=== PATIENT | female | born 1955 | race Caucasian/White ===

== ENCOUNTER → 2019-08-01 10:02 | Outpatient (BNVA) | payer MEDICARE, SELFPAY | PROVIDERS: Family Provider Family Medicine; PCP Nurse Practitioner; Referring Provider Nurse Practitioner; Visit Provider Specialist | DX: M25.511 Pain in right shoulder (principal) | CPT/HCPCS: 73030 ==

== ENCOUNTER 2019-08-01 11:34 | Outpatient (CLI) | payer MEDICARE, SELFPAY ==
[2019-08-01 12:08] LABS: Hematocrit 41.8 % (37.0-47.0); Hemoglobin 13.2 g/dL (11.5-15.3); Mean Corpuscular HGB Conc 31.6 g/dL (30.0-36.0); Mean Corpuscular Hemoglobin 28.1 pg (28.0-34.0); Mean Corpuscular Volume 88.9 fL (81-99); Mean Platelet Volume 9.9 fL (7.4-10.4); Platelet Count 379 10^3/cmm (130-400); Red Cell Distribution Width 13.8 % (12.1-15.1); White Blood Count 11.6 10^3/uL (4.0-10.0)
[2019-08-01 12:26] LABS: Absolute Eosinophils 0.2 10^3/cmm (0.0-0.7); Absolute Segmented Neutrophil 7.7 10/cmm (1.6-7.1); Band Neutrophils Absolute 0.5 10^3/cmm (0.0-1.2); Eosinophils 2 %; Lymphocytes 23 %; Monocytes Absolute 0.5 10^3/cmm (0.1-0.6); Platelet Estimate Normal (Normal); Segmented Neutrophils 67 %; Total Cells Counted 100 (0-100)
[2019-08-01 12:32] LABS: C Reactive Protein 27.8 mg/L (0.0-4.9)
[2019-08-01 12:59] LABS: Erythrocyte Sedimentation Rate 30 mm/hr (0-15)
[2019-08-04 02:17] LABS: ANA SCREEN, IFA NEGATIVE (NEGATIVE); CENTROMERE B ANTIBODY <1.0 NEG AI (<1.0 NEG); COMPLEMENT COMPONENT C3C 167 mg/dL (83-193); COMPLEMENT COMPONENT C4C 35 mg/dL (15-57); COMPLEMENT, TOTAL (CH50) >60 U/mL (31-60); DNA AB (DS) CRITHIDIA,IFA NEGATIVE (NEGATIVE); JO-1 ANTIBODY <1.0 NEG AI (<1.0 NEG); RNP ANTIBODY <1.0 NEG AI (<1.0 NEG); SCL-70 ANTIBODY <1.0 NEG AI (<1.0 NEG); SJOGREN'S ANTIBODY (SS-A) <1.0 NEG AI (<1.0 NEG); SM ANTIBODY <1.0 NEG AI (<1.0 NEG); THYROID PEROXIDASE ANTIBODIES 1 IU/mL (<9)
== END 2019-08-01 11:35 | disposition home or self-care (01) ==
PROVIDERS: Family Provider Family Medicine; PCP Nurse Practitioner; Visit Provider Specialist
DX: M19.90 Unspecified osteoarthritis, unspecified site (principal)
CPT/HCPCS: 85007; 85027; 85651; 86140

== ENCOUNTER 2019-09-03 10:13 | Emergency (ER) | payer MEDICARE, SELFPAY ==
--- NOTE | 2019-09-03 10:18 | ED_ITS ---
Entered by Ann Powell, acting as scribe for Christopher Olsen DO HPI - General Adult General: Chief complaint: Chest Pain Stated complaint: CP Time Seen by Provider: 09/03/19 10:24 History of Present Illness: HPI narrative: 64 yo female presents with chest pain. Pt states that she isn't feeling well. Pt states that she is nauseated. Pt states that her heart rate was low this morning and she had pressure in her chest. Pt states that she had dizziness this morning. Pt states that she took zofran and meclazine today. Pt states that the low heart rate is new for her. MD complaint: chest pain Associated symptoms: Reports chest pain, nausea and vomiting; Deny dyspnea, headache(s), malaise or rash Review of Systems Const: Denies: fever, chills, body aches, change in appetite, fatigue or malaise ENMT: Denies: throat pain, ear pain, nasal discharge or nasal congestion Card: Reports: chest pain; Denies: edema, shortness of breath on exertion or shortness of breath when lying down Resp: Denies: shortness of breath, productive cough or non-productive cough GI: Reports: nausea and vomiting : Denies: flank pain, difficulty urinating, painful urination, urinary frequency or urinary urgency Skin/Breast: Denies: rash or itching Neuro: Reports: vertigo; Denies: headache, numbness in extremities or weakness in extremities PFSH ED PFSH: Social History Smoking and tobacco status: never smoked Alcohol intake: never Physical Exam Const: COMMON NORMALS: no apparent distress GENERAL APPEARANCE: cooperative and comfortable ORIENTATION/CONSCIOUSNESS: Yes awake, Yes oriented to person, Yes oriented to place and Yes oriented to time HENMT: COMMON NORMALS: normocephalic, head/scalp atraumatic, hearing grossly normal bilaterally, external ears normal, EAC's normal, TM's normal bilaterally, nasal mucous membranes and turbinates normal, moist oral mucous membranes and oropharynx normal HEAD & SCALP: normocephalic and atraumatic NOSE: nasal mucous membranes and turbinates normal EXTERNAL EAR: Yes external ears normal EXTERNAL AUDITORY CANAL: EAC's normal TYMPANIC MEMBRANE: TM's normal bilaterally Eye: COMMON NORMALS: PERRL, EOMs intact bilaterally, conjunctivae normal and no scleral icterus CONJUNCTIVA: Yes conjunctivae normal PUPIL: Yes PERRL Neck/C-Spine: COMMON NORMALS: full ROM, no lymphadenopathy, supple and no JVD Lymph: LYMPHATIC: no lymphadenopathy noted and no lymphedema noted Resp: COMMON NORMALS: normal respiratory effort, no retractions, no use of accessory muscles and clear to auscultation bilaterally AUSCULTATION: clear to auscultation bilaterally Cardio: COMMON NORMALS: no JVD, regular rate, regular rhythm and no murmurs RATE: regular rate RHYTHM: regular rhythm GI: COMMON NORMALS: soft to palpation and no hepatosplenomegaly AUSCULTATION: Yes normoactive bowel sounds PALPATION: Yes soft, No tender, No guarding and Yes no hepatosplenomegaly Extremity: COMMON NORMALS: normal to inspection, normal capillary refill, no clubbing, cyanosis or edema, no calf tenderness and no pedal edema Neuro: SENSORIUM/ORIENTATION: Yes oriented to person, Yes oriented to place and Yes oriented to time Skin: COMMON NORMALS: no rashes or lesions noted GENERAL SKIN EXAM: no rashes or lesions noted Course ED course: Patient is a heart score of 2 she had a stress test Lexiscan sestamibi in March 2019 which was normal. Believe we can go ahead and discharge the patient have her continue taking aspirin daily return if has further problems. Follow-up with her primary care doctor within the next week. Vital Signs: Vital signs: Vital Signs Temperature 98.4 F 09/03/19 11:08 Pulse Rate 56 L 09/03/19 13:50 Respiratory Rate 20 H 09/03/19 13:50 Blood Pressure 128/70 09/03/19 13:50 Pulse Oximetry 95 09/03/19 13:50 [facility] - General Adult Lab Data: Labs: Lab Results 09/03/19 09/03/19 09/03/19 Range/Units 10:35 10:35 10:35 WBC 16.3 H (4.0-10.0) 10^3/ uL RBC 4.80 (4.1-5.3) 10^6/u L Hgb 13.1 (11.5-15.3) g/dL Hct 40.6 (37.0-47.0) % MCV 84.6 (81-99) fL MCH 27.3 L (28.0-34.0) pg MCHC 32.3 (30.0-36.0) g/dL RDW 13.8 (12.1-15.1) % Plt Count 408 H (130-400) 10^3/c mm MPV 10.2 (7.4-10.4) fL Neut % (Auto) 74.7 % Lymph % (Auto) 19.6 % [place] % (Auto) 5.0 % Eos % (Auto) 0.2 % Baso % (Auto) 0.2 % Neut # (Auto) 12.1 H (1.8-7.7) 10^3/u L Lymph # (Auto) 3.2 (0.8-4.8) 10^3/u L [place] # (Auto) 0.8 (0.2-0.9) 10^3/u L Eos # (Auto) 0.0 (0.0-0.8) 10^3/u L Baso # (Auto) 0.0 (0.0-0.1) 10^3/u L Nucleated RBC % (a uto) 0 % Nucleated RBCs # 0.0 /100WBC Sodium 137 (136-145) mmol/L Potassium 3.8 (3.5-5.1) mmol/L Chloride 98 (98-107) mmol/L Carbon Dioxide 26 (22-29) mmol/L Anion Gap 16.8 (5-19) BUN 17 (8-23) mg/dL Creatinine 0.8 (0.5-0.9) mg/dL GFR Calculation 72.2 L (90-130) mL/min Glucose 167 H (65-115) mg/dL Calcium 10.0 (8.5-10.5) mg/dL Total Bilirubin 0.4 (0.15-1.2) mg/dL AST 15 (0-32) U/L ALT 22 (0-33) U/L Alkaline Phosphata se 116 H (35-105) IU/L Troponin T Baselin e 8 (0-10) ng/mL Troponin T 120 Min [place] (0-10) ng/mL Delta Troponin T (0-10) ABS# Total Protein 7.9 (6.6-8.7) g/dL Albumin 4.3 (3.5-5.2) g/dL Globulin 3.6 (1.3-4.6) g/dL 09/03/19 Range/Units 12:31 WBC (4.0-10.0) 10^3/ uL RBC (4.1-5.3) 10^6/u L Hgb (11.5-15.3) g/dL Hct (37.0-47.0) % MCV (81-99) fL MCH (28.0-34.0) pg MCHC (30.0-36.0) g/dL RDW (12.1-15.1) % Plt Count (130-400) 10^3/c mm MPV (7.4-10.4) fL Neut % (Auto) % Lymph % (Auto) % [place] % (Auto) % Eos % (Auto) % Baso % (Auto) % Neut # (Auto) (1.8-7.7) 10^3/u L Lymph # (Auto) (0.8-4.8) 10^3/u L [place] # (Auto) (0.2-0.9) 10^3/u L Eos # (Auto) (0.0-0.8) 10^3/u L Baso # (Auto) (0.0-0.1) 10^3/u L Nucleated RBC % (a uto) % Nucleated RBCs # /100WBC Sodium (136-145) mmol/L Potassium (3.5-5.1) mmol/L Chloride (98-107) mmol/L Carbon Dioxide (22-29) mmol/L Anion Gap (5-19) BUN (8-23) mg/dL Creatinine (0.5-0.9) mg/dL GFR Calculation (90-130) mL/min Glucose (65-115) mg/dL Calcium (8.5-10.5) mg/dL Total Bilirubin (0.15-1.2) mg/dL AST (0-32) U/L ALT (0-33) U/L Alkaline Phosphata se (35-105) IU/L Troponin T Baselin e (0-10) ng/mL Troponin T 120 Min [place] 7.58 (0-10) ng/mL Delta Troponin T -0.42 L (0-10) ABS# Total Protein (6.6-8.7) g/dL Albumin (3.5-5.2) g/dL Globulin (1.3-4.6) g/dL Discharge Plan Discharge Patient Disposition: Home, Self-Care Clinical Impression: Atypical chest pain Condition: Stable Prescriptions: No Action hydrochlorothiazide 25 mg tablet 25 mg PO DAILY RF: 0 magnesium 250 mg tablet 250 mg PO DAILY RF: 0 potassium 99 mg tablet 99 mg PO DAILY RF: 0 metoprolol tartrate 25 mg tablet 25 mg PO BID Qty: 60 RF: 5 prednisone 10 mg Tablet 10 mg PO DAILY PRN (Reason: Nausea) RF: 0 albuterol sulfate 2.5 mg /3 mL (0.083 %) Solution For Nebulization 2.5 mg INHALATION QID PRN (Reason: Wheezing) RF: 0 Singulair 4 mg Tablet,Chewable 4 mg PO DAILY RF: 0 aspirin 81 mg Tablet,Delayed Release (Dr/Ec) 81 mg PO DAILY RF: 0 tramadol 50 mg Tablet 50 mg PO Q6H PRN (Reason: Pain) RF: 0 famotidine 20 mg Tablet 20 mg PO BID RF: 0 meclizine 25 mg Tablet 25 mg PO BID PRN (Reason: Nausea) RF: 0 nitroglycerin 0.4 mg Tablet, Sublingual 0.4 mg SUBLINGUAL Q5M PRN (Reason: Chest Pain) RF: 0 ProAir HFA 90 mcg/actuation Hfa Aerosol Inhaler 2 puff INHALATION 6XD PRN (Reason: Wheezing) RF: 0 ondansetron 4 mg Tablet,Disintegrating 4 mg PO Q6H PRN (Reason: Nausea) RF: 0 Excedrin Extra Strength 250-250-65 mg Tablet 1 tab PO Q6H PRN (Reason: Pain) RF: 0 Novolin 70/30 U-100 Insulin 100 unit/mL (70-30) Suspension See Rx Instructions .ROUTE .COMPLEX RF: 0 Novolin R Regular U-100 Insuln 100 unit/mL Solution See Rx Instructions .ROUTE .COMPLEX RF: 0 Discharge Orders: Discharge Order (Routine); Ordered 09/03/19 Ordered By: Christopher Olsen Referrals: Gina Frye MD [Family Provider] - Candi Weathers APN [Primary Care Provider] - Activity Restrictions/Additional Instructions: Follow-up with your primary care doctor in the next week. Discharge Date/Time: 09/03/19 13:40 Coding Level of Care Code ED Ream Cutter for Chg Fwd Exam Comprehensive The documentation recorded by the Andre prasad Kialy, accurately reflects the service I personally performed and the decisions made by Pretty schroeder Curtis L, DO Sep 03, 2019 10:13
[2019-09-03 10:19] VITALS: BMI 37.9
--- NOTE | 2019-09-03 10:40 | XR_ITS ---
WS: [id number] XR chest 1V portable [id number] REASON FOR EXAM: dyspnea/cough FINDINGS: Overriding the right hemidiaphragm is a electronic device. The heart and mediastinal interfaces normal. There is fusion of the lower cervical spine with anterior fusion noted. The lung [place] are well aerated no pneumonia, pleural effusion, pulmonary edema, or mass effect. XR/XR chest 1V portable [id number] IMPRESSION: No active cardiopulmonary changes.
--- NOTE | 2019-09-03 10:40 | ECG_ITS ---
Measurements Intervals [place] Rate: 52 P: 25 UT: 139 QRS: -4 QRSD: 85 T: -3 QT: 454 QTc: 425 SINUS BRADYCARDIA MODERATE VOLTAGE CRITERIA FOR LVH, CONSIDER NORMAL VARIANT [MEETS CRITERIA IN ONE ONE OF: R(aVL), S(V1), R(V5), R(V5/V6)+S(V1)] POSSIBLE ANTERIOR MYOCARDIAL INFARCTION , PROBABLY OLD [30 ms Q WAVE IN V3/V4, OR R < 0.2 mV IN V4] Compared to ECG 04/16/2019 16:13:19 Myocardial infarct finding now present Sinus rhythm no longer present Ventricular premature complex(es) no longer present T-wave abnormality no longer present Electronically Signed On 09-03-2019 11:21:26 SAFETY EQUIPMENT TESTING SPECIALIST by Ish Felix M.D. [email or web address]
[2019-09-03 10:47] LABS: Basophils % 0.2 %; Eosinophils % 0.2 %; Hematocrit 40.6 % (37.0-47.0); Hemoglobin 13.1 g/dL (11.5-15.3); Lymphocytes # 3.2 10^3/uL (0.8-4.8); Lymphocytes % 19.6 %; Mean Corpuscular HGB Conc 32.3 g/dL (30.0-36.0); Mean Corpuscular Hemoglobin 27.3 pg (28.0-34.0); Mean Corpuscular Volume 84.6 fL (81-99); Mean Platelet Volume 10.2 fL (7.4-10.4); Monocytes # 0.8 10^3/uL (0.2-0.9); Neutrophils # 12.1 10^3/uL (1.8-7.7); Neutrophils % 74.7 %; Nucleated Red Blood Cells % 0 %; Platelet Count 408 10^3/cmm (130-400); Red Cell Distribution Width 13.8 % (12.1-15.1); White Blood Count 16.3 10^3/uL (4.0-10.0)
[2019-09-03 10:57] LABS: Alanine Aminotransferase 22 U/L (0-33); Albumin Level 4.3 g/dL (3.5-5.2); Alkaline Phosphatase 116 IU/L (35-105); Anion Gap 16.8 (5-19); Aspartate Amino Transferase 15 U/L (0-32); Blood Urea Nitrogen 17 mg/dL (8-23); Carbon Dioxide 26 mmol/L (22-29); Chloride 98 mmol/L (98-107); Globulin 3.6 g/dL (1.3-4.6); Glomerular Filtration Rate 72.2 mL/min (90-130); Glucose 167 mg/dL (65-115); Potassium 3.8 mmol/L (3.5-5.1); Sodium 137 mmol/L (136-145); Total Bilirubin 0.4 mg/dL (0.15-1.2); Total Protein 7.9 g/dL (6.6-8.7)
[2019-09-03 10:59] LABS: Troponin(5th) Baseline 8 ng/mL (0-10)
[2019-09-03 11:08] VITALS: BP 154/85; PULSE 55; RESP 18; TEMP 36.9; O2SAT 92
[2019-09-03 11:53] VITALS: BP 133/84; PULSE 50; O2SAT 92
[2019-09-03] MEDS: sodium chloride 0.9% 500 ML 999 ML IV (12:25)
--- NOTE | 2019-09-03 12:40 | ECG_ITS ---
Measurements Intervals [place] Rate: 50 P: 16 [place]: 160 QRS: 5 QRSD: 86 T: -2 QT: 480 QTc: 441 SINUS BRADYCARDIA MINIMAL VOLTAGE CRITERIA FOR LVH, CONSIDER NORMAL VARIANT [MEETS CRITERIA IN ONE OF: R(aVL), S(V1), R(V5), R(V5/V6)+S(V1)] WARNING: DATA QUALITY MAY AFFECT INTERPRETATION Compared to ECG 09/03/2019 10:30:39 Myocardial infarct finding no longer present Electronically Signed On 09-03-2019 16:06:13 CARBIDER by Ish Felix M.D. [id number]
[2019-09-03 13:01] LABS: Troponin 5 2HR 7.58 ng/mL (0-10)
[2019-09-03 13:11] LABS: Troponin 5 2HR Delta -0.42 ABS# (0-10)
[2019-09-03 13:50] VITALS: BP 128/70; PULSE 56; RESP 20; O2SAT 95
== END 2019-09-03 13:40 | disposition home or self-care (01) ==
PROVIDERS: Emergency Provider Family Medicine; Family Provider Family Medicine; PCP Nurse Practitioner
DX: R07.89 Other chest pain (principal)
CPT/HCPCS: 36415; 71045; 80053; 84484; 85025; 93005; 96360; 99282; 99284; J7040

== ENCOUNTER → 2019-11-14 11:07 | Outpatient (BNVA) | payer MEDICARE, SELFPAY | PROVIDERS: Family Provider Family Medicine; PCP Nurse Practitioner; Visit Provider Internal Medicine Rheumatology | DX: M05.9 Rheumatoid arthritis with rheumatoid factor, unspecified (principal); Z11.59 Encounter for screening for other viral diseases; Z79.899 Other long term (current) drug therapy; Z11.1 Encounter for screening for respiratory tuberculosis; M19.90 Unspecified osteoarthritis, unspecified site; Z79.52 Long term (current) use of systemic steroids; Z13.820 Encounter for screening for osteoporosis; E11.9 Type 2 diabetes mellitus without complications; Z79.4 Long term (current) use of insulin; Z72.89 Other problems related to lifestyle | CPT/HCPCS: 36415; 82306; 85651; 86140; 86431; 86480; 86704; 86803; 87340; 99204 ==

== ENCOUNTER 2019-11-19 10:15 | Outpatient (CLI) | payer MEDICARE, SELFPAY ==
--- NOTE | 2019-11-19 11:00 | XR_ITS ---
WS: [id number] RIGHT FOOT: 3 VIEW(S) TECHNIQUE: AP, oblique and lateral. HISTORY: inflammatory arthritis COMPARISON: 02/14/2014 No acute fracture or dislocation. Mild degenerative changes at the first metatarsophalangeal joint. No erosions. Additional degenerativ e changes at the first tarsometatarsal joint. Small calcaneal spur. Enthesopathy at the Achilles tendon. XR/XR foot RT min 3V* [id number] IMPRESSION: Osteoarthritic degenerative changes as above. No erosions. Mild progression sin ce 2013.
--- NOTE | 2019-11-19 11:00 | XR_ITS ---
WS: [id number] DEXA (DUAL ENERGY X-RAY ABSORPTIOMETRY) Bone mineral density was performed using a [employer] machine. HISTORY: chronic steroid use COMPARISON: 11/19/2019 Lumbar spine BMD (L1-L4): 1.499 g/cm2 T score: 2.7 Z score: 3.1 Total hip BMD: Left: 1.112 g/cm2. T score: 0.8 Z score: 1.2 Right: 1.128 g/cm2. T score: 1.0 Z score: 1.3 10 year probability of a major osteoporotic fracture is 11%. XR/XR DEXA axial skeleton* [id number] IMPRESSION: Normal bone mineral density based upon the WHO classification for females.
--- NOTE | 2019-11-19 11:00 | XR_ITS ---
WS: [id number] LEFT FOOT: 3 VIEW(S) TECHNIQUE: AP, oblique and lateral. HISTORY: inflammatory arthritis COMPARISON: 02/14/2014 No acute fracture or dislocation. Mild degenerative changes at the first metatarsophalangeal joint. No erosions. Small calcaneal spur. No soft tissue abnormality or bone destruction. XR/XR foot LT min 3V* [id number] IMPRESSION: Mild degenerative changes of osteoarthritis. No fracture.
--- NOTE | 2019-11-19 11:00 | XR_ITS ---
WS: [id number] LEFT HAND: 3 VIEW(S) TECHNIQUE: PA, oblique and lateral. HISTORY: Inflammatory arthritis. COMPARISON: None available. No acute fracture or dislocation. Mild interphalangeal joint space narrowing. No metacarpal head erosions. Ulnar styloid is intact. No subluxation or osteopenia. XR/XR hand LT min 3V* [id number] IMPRESSION: Mild osteoarthritis.
--- NOTE | 2019-11-19 11:00 | XR_ITS ---
WS: [id number] RIGHT HAND: 3 VIEW(S) TECHNIQUE: PA, oblique and lateral. HISTORY: inflammatory arthritis COMPARISON: None available. No acute fracture or dislocation. Mild interphalangeal joint space narrowing. No erosions. No subluxation. No osteopenia. XR/XR hand RT min 3V* [id number] IMPRESSION: Mild interphalangeal joint space narrowing, most likely osteoarthritis.
== END 2019-11-19 10:16 | disposition home or self-care (01) ==
LOC: RADWPI 10:19
PROVIDERS: Family Provider Family Medicine; PCP Nurse Practitioner; Visit Provider Internal Medicine Rheumatology
DX: M19.90 Unspecified osteoarthritis, unspecified site (principal); Z13.820 Encounter for screening for osteoporosis; Z79.52 Long term (current) use of systemic steroids; M19.042 Primary osteoarthritis, left hand; M19.072 Primary osteoarthritis, left ankle and foot; M19.071 Primary osteoarthritis, right ankle and foot
CPT/HCPCS: 73130; 73630; 77080

== ENCOUNTER 2019-11-19 14:22 | Outpatient (CLI) | payer MEDICARE, SELFPAY ==
--- NOTE | 2019-11-19 14:29 | XR_ITS ---
WS: [id number] LATERAL LUMBAR SPINE: 3 view. Lateral radiographs are performed in upright neutral, flexion and extension to the patient's toleranc e. HISTORY: LOW BACK PAIN COMPARISON: 10/17/2013 L4 anterolisthesis by 2 mm on neutral imaging. Slight increased to 3.7 mm during flexion and 2.6 mm d uring extension. Mild disc space narrowing at L3-4 and L5-S1. No fracture. XR/XR lumbar spine f/e only [id number] IMPRESSION: No significant lumbar spine instability.
== END 2019-11-19 14:23 | disposition home or self-care (01) ==
LOC: RADWPI 14:25
PROVIDERS: Family Provider Family Medicine; PCP Nurse Practitioner; Visit Provider Nurse Practitioner
DX: M54.5 Low back pain (principal)
CPT/HCPCS: 72120

== ENCOUNTER 2019-11-26 07:51 | Outpatient (CLI) | payer MEDICARE, SELFPAY ==
--- NOTE | 2019-11-26 08:01 | MR_ITS ---
WS: [id number] MRI LUMBAR SPINE NONCONTRAST TECHNIQUE: Sagittal T1, T2 and STIR imaging. Axial T1 and T2 imaging. CLINICAL INFORMATION: LOW BACK PAIN COMPARISON: None. FINDINGS: Mild lumbar curve. No acute compression. Disc bulging worse at L3-4 and L5-S1. L1-L2: Mild annular bulging. Mild facet arthropathy. Spinal canal and foramen are patent. L2-L3: Mild annular bulging. Slight narrowing of the left subarticular recess. Mild facet arthropathy . Spinal canal and foramen are patent. L3-L4: Mild disc bulging with a small shallow right pericentral protrusion. Impingement on the right subarticular recess and traversing L4 nerve root. Mild central canal stenosis. Mild right and no sign ificant left foraminal narrowing. Moderate facet arthropathy. L4-L5: Mild annular bulging with mild canal stenosis and impingement subarticular recess bilaterally. Contact of the traversing L5 nerve roots. Mild right and no significant left foraminal narrowing. Mo derate facet arthropathy. L5-S1: Mild disc bulging with slight effacement of ventral thecal sac. Impingement on the right great er than left traversing S1 nerve roots. Mild right and no significant left foraminal narrowing. Mild facet arthropathy. Prior anterior cervical fusion C5-C6 seen on the desktop publishing operator imaging. MR/MR lumbar spine wo con* [id number] IMPRESSION: 1. Small right pericentral protrusion L3-4 impinges the traversing right L4 ne rve root. Mild central canal stenosis. Mild right foraminal narrowing at this l evel. 2. Mild central canal stenosis L4-5 with slight impingement traversing L5 nerv e roots. Mild right foraminal narrowing at this level. 3. Disc osteophyte complex L5-S1 impinges the traversing right S1 nerve root. Mild bilateral foraminal narrowing. 4. Moderate facet arthropathy L3-L5. 5. Disc bulging L3-4 has progressed since 2016. Otherwise only Mild interval p rogression of degenerative changes.
== END 2019-11-26 07:52 | disposition home or self-care (01) ==
LOC: RADWPI 07:54
PROVIDERS: Family Provider Family Medicine; PCP Nurse Practitioner; Visit Provider Nurse Practitioner
DX: M48.061 Spinal stenosis, lumbar region without neurogenic claudication (principal); M25.78 Osteophyte, vertebrae; M47.816 Spondylosis without myelopathy or radiculopathy, lumbar region
CPT/HCPCS: 72148

== ENCOUNTER 2019-12-05 10:43 | Outpatient (CLI) | payer MEDICARE, SELFPAY ==
--- NOTE | 2019-12-05 11:12 | MM_ITS ---
WS: [id number] BILATERAL DIGITAL SCREENING MAMMOGRAM WITH CAD CLINICAL INFORMATION: SCREENING HISTORY: Screening mammogram. No current complaints. COMPARISON: August 10, 2018. TECHNIQUE: Bilateral CC and MLO views. FINDINGS: Fatty-replaced breasts bilaterally. No suspicious focal mass, asymmetry, calcifications, or delivery architect ural distortion. No evidence of malignancy. Vascular calcification. Lucent structure calcifications. Glucose monitor. MM/[place] [id number] IMPRESSION: BI-RADS: 2-Benign FOLLOW UP: 1 Year Follow-up Recommend return to annual screening mammography.
== END 2019-12-05 10:44 | disposition home or self-care (01) ==
LOC: RADSHAW 10:48
PROVIDERS: PCP Nurse Practitioner; Visit Provider Nurse Practitioner
DX: Z12.31 Encounter for screening mammogram for malignant neoplasm of breast (principal)
CPT/HCPCS: 77067

== ENCOUNTER 2019-12-18 08:00 | Outpatient (CLI) | payer MEDICARE, SELFPAY | END 2019-12-18 09:00 | disposition home or self-care (01) | LOC: RT 03-04 13:04 | PROVIDERS: PCP Nurse Practitioner; Visit Provider Nurse Practitioner | DX: Z79.899 Other long term (current) drug therapy (principal) | CPT/HCPCS: 80076; 82565; 85025; 85651; 86140 ==

== ENCOUNTER → 2020-02-06 10:51 | Outpatient (BNVA) | payer MEDICARE, SELFPAY | PROVIDERS: PCP Nurse Practitioner; Visit Provider Internal Medicine Rheumatology | DX: M06.041 Rheumatoid arthritis without rheumatoid factor, right hand (principal); Z79.899 Other long term (current) drug therapy; M06.042 Rheumatoid arthritis without rheumatoid factor, left hand; M79.7 Fibromyalgia; E11.9 Type 2 diabetes mellitus without complications; Z79.4 Long term (current) use of insulin; Z79.52 Long term (current) use of systemic steroids | CPT/HCPCS: 36415; 80076; 82565; 85025; 85651; 86140; 99214 ==

== ENCOUNTER → 2020-06-04 09:22 | Outpatient (BNVA) | payer MEDICARE, SELFPAY | PROVIDERS: PCP Nurse Practitioner; Visit Provider Internal Medicine Rheumatology | DX: M06.041 Rheumatoid arthritis without rheumatoid factor, right hand (principal); M06.042 Rheumatoid arthritis without rheumatoid factor, left hand; M79.7 Fibromyalgia; E11.9 Type 2 diabetes mellitus without complications; Z79.4 Long term (current) use of insulin; Z79.899 Other long term (current) drug therapy | CPT/HCPCS: 99214 ==

== ENCOUNTER 2020-06-04 10:38 | Outpatient (CLI) | payer MEDICARE, SELFPAY ==
[2020-06-04 11:03] LABS: Basophils # 0.1 10^3/uL (0.0-0.1); Basophils % 0.4 %; Eosinophils # 0.3 10^3/uL (0.0-0.8); Eosinophils % 2.9 %; Hematocrit 38.4 % (37.0-47.0); Hemoglobin 12.1 g/dL (11.5-15.3); Lymphocytes # 2.8 10^3/uL (0.8-4.8); Lymphocytes % 23.9 %; Mean Corpuscular HGB Conc 31.5 g/dL (30.0-36.0); Mean Corpuscular Hemoglobin 27.5 pg (28.0-34.0); Mean Corpuscular Volume 87.3 fL (81-99); Mean Platelet Volume 9.7 fL (7.4-10.4); Monocytes # 0.8 10^3/uL (0.2-0.9); Monocytes % 6.8 %; Neutrophils # 7.58 10^3/uL (1.8-7.7); Neutrophils % 65.7 %; Nucleated Red Blood Cells % 0 %; Platelet Count 354 10^3/cmm (130-400); Red Cell Distribution Width 13.6 % (12.1-15.1); White Blood Count 11.6 10^3/uL (4.0-10.0)
[2020-06-04 11:26] LABS: Alanine Aminotransferase 51 U/L (0-33); Albumin Level 3.9 g/dL (3.5-5.2); Alkaline Phosphatase 114 IU/L (35-105); Aspartate Amino Transferase 34 U/L (0-32); C Reactive Protein 33.4 mg/L (0.0-4.9); Globulin 2.8 g/dL (1.3-4.6); Total Bilirubin 0.3 mg/dL (0.15-1.2); Total Protein 6.7 g/dL (6.6-8.7)
[2020-06-04 11:42] LABS: Erythrocyte Sedimentation Rate 40 mm/hr (0-15)
== END 2020-06-04 10:39 | disposition home or self-care (01) ==
LOC: LAB 10:42
PROVIDERS: PCP Nurse Practitioner; Visit Provider Internal Medicine Rheumatology
DX: Z79.899 Other long term (current) drug therapy (principal)
CPT/HCPCS: 36415; 80076; 82565; 85025; 85651; 86140; 99214

== ENCOUNTER 2020-06-19 14:41 | Outpatient (CLI) | payer MEDICARE, SELFPAY ==
--- NOTE | 2020-06-19 15:00 | USCV_ITS ---
Leydi Piper Age: 65 Gender: F : 1955 Exam Date: 06/19/2020 15:05 Ordering Phys: Emelina Galindo MD ([email or web address]) Technologist: Pauline Navarro Exam Location: [facility] [place] Indication: dyspnea, unspecified BP: / HR: 87 Rhythm: Sinus Technical Quality: Fair MEASUREMENTS (Male / Female) Normal Values 2D ECHO LV Diastolic Diameter PLAX 4.0 cm 4.2 - 5.9 / 3.9 - 5.3 cm LV Systolic Diameter PLAX 1.2 cm IVS Diastolic Thickness 0.9 cm 0.6 - 1.0 / 0.6 - 0.9 cm IVS Systolic Thickness 1.8 cm LVPW Diastolic Thickness 0.8 cm 0.6 - 1.0 / 0.6 - 0.9 cm LVPW Systolic Thickness 2.3 cm LVOT Diameter 2.1 cm LV Ejection Fraction 2D Teich 95.3 % LV Ejection Fraction MOD 2C 79.0 % LV Ejection Fraction 2C AL 78.9 % LA Diameter 3.5 cm LA Width 2.5 cm LA Height 4.3 cm RA Width 2.8 cm RA Height 5.3 cm Aorta at Sinotubular Diameter 3.0 cm M-MODE LV Diastolic Diameter MM 4.6 cm 4.2 - 5.9 / 3.9 - 5.3 cm LV Systolic Diameter MM 2.8 cm LV Ejection Fraction MM Teich 69.0 % IVS Diastolic Thickness MM 1.0 cm 0.6 - 1.0 / 0.6 - 0.9 cm IVS Systolic Thickness MM 1.0 cm LVPW Diastolic Thickness MM 0.8 cm 0.6 - 1.0 / 0.6 - 0.9 cm LVPW Systolic Thickness MM 1.7 cm Aortic Annulus Diameter 2.8 cm LA Ao Ratio MM 1.3 MV E Point Septal Separation 0.2 cm DOPPLER AV Peak Velocity 99.0 cm/s LVOT Peak Velocity 90.0 cm/s AV Area Cont Eq vti 3.5 cm squared AV Area Cont Eq pk 3.2 cm squared MV Peak Velocity 90.0 cm/s MV Area PHT 3.5 cm squared Mitral E to A Ratio 0.8 MV E' Velocity 40.5 cm/s Mitral E to MV E' Ratio 8.8 Mitral E to LV E' Lateral Ratio 7.4 Mitral E to LV E' Septal Ratio 10.9 TR Peak Velocity 64.0 cm/s TR Peak Gradient 1.6 mmHg Right Atrial Pressure 3.0 mmHg Pulmonary Artery Systolic Pressu 4.6 mmHg PV Peak Velocity 97.0 cm/s RV Acceleration Time 0.1 s RV Ejection Time 0.3 s RV AcT/ET 0.3 FINDINGS Left Ventricle Normal left ventricular size, systolic function and wall thickness, with no regional wall motion abnormalities. Left ventricular ejection fraction is estimated at 65 %. Normal diastolic function. Right Ventricle Normal right ventricular size and systolic function, RVSP 4.6 mmHg. Right Atrium Normal right atrial size. Left Atrium Normal left atrial size. Mitral Valve Structurally normal mitral valve. No mitral valve stenosis. Trace mitral valve regurgitation. Aortic Valve Probably trileaflet aortic valve. No aortic valve stenosis. No aortic valve regurgitation. Tricuspid Valve Structurally normal tricuspid valve. No tricuspid valve stenosis. Trace to mild tricuspid valve regurgitation. Pulmonic Valve Pulmonic valve not well visualized. Trace pulmonary valve regurgitation. Pericardium No pericardial effusion. Aorta Normal size aortic root. CONCLUSIONS 1. Normal left ventricular size, systolic function and wall thickness, with no regional wall motion abnormalities. Left ventricular ejection fraction is estimated at 65 %. Normal diastolic function. 2. No significant valvular abnomality. 3. No pericardial effusion. 4. No prior similar studies to comapre. Emelina Galindo MD (Electronically Signed) Final Date: 24 June 2020 07:42 S
== END 2020-06-19 14:42 | disposition home or self-care (01) ==
LOC: RAD 14:44
PROVIDERS: PCP Nurse Practitioner; Visit Provider Internal Medicine Cardiovascular Disease
DX: R06.00 Dyspnea, unspecified (principal)
CPT/HCPCS: 93306

== ENCOUNTER → 2020-10-20 08:37 | Outpatient (BNVA) | payer MEDICARE, SELFPAY | PROVIDERS: PCP Nurse Practitioner; Visit Provider Internal Medicine Rheumatology | DX: M06.041 Rheumatoid arthritis without rheumatoid factor, right hand (principal); M06.042 Rheumatoid arthritis without rheumatoid factor, left hand; Z79.899 Other long term (current) drug therapy | CPT/HCPCS: 36415; 80076; 82565; 85025; 86140 ==

== ENCOUNTER → 2020-10-27 08:52 | Outpatient (BNVA) | payer MEDICARE, SELFPAY | PROVIDERS: PCP Nurse Practitioner; Visit Provider Internal Medicine Rheumatology | DX: M06.041 Rheumatoid arthritis without rheumatoid factor, right hand (principal); M06.042 Rheumatoid arthritis without rheumatoid factor, left hand; Z79.899 Other long term (current) drug therapy; M79.7 Fibromyalgia; E11.9 Type 2 diabetes mellitus without complications; Z79.4 Long term (current) use of insulin | CPT/HCPCS: 99214 ==

== ENCOUNTER → 2020-11-03 10:30 | Outpatient (BNVA) | payer MEDICARE, SELFPAY | PROVIDERS: PCP Nurse Practitioner; Visit Provider Specialist | DX: M25.572 Pain in left ankle and joints of left foot (principal); Z46.89 Encounter for fitting and adjustment of other specified devices; M25.372 Other instability, left ankle | CPT/HCPCS: 73610; L1902 ==

== ENCOUNTER 2020-11-03 14:04 | Outpatient (CLI) | payer MEDICARE, SELFPAY | END 2020-11-03 14:05 | disposition home or self-care (01) | LOC: SPT 14:06 | PROVIDERS: PCP Nurse Practitioner; Visit Provider Specialist | DX: Z46.89 Encounter for fitting and adjustment of other specified devices (principal); M25.372 Other instability, left ankle | CPT/HCPCS: L1902 ==

== ENCOUNTER 2021-02-25 11:34 | Emergency (ER) | payer MEDICARE, SELFPAY ==
[2021-02-25 12:30] VITALS: BP 134/81; PULSE 54; RESP 18; TEMP 36.7; O2SAT 94; BMI 40.7
--- NOTE | 2021-02-25 12:52 | XR_ITS ---
WS: [id number] Cervical spine, 3 views, 02/25/2021 Clinical Data: fall Comparison: None. Findings: No compression fractures are seen. There is an anterior cervical disc fusion from C5 throug h C7 with artificial disc material at C5-C6 and C6-C7. There is a spur at the anterior-inferior aspec t of C4. There is no prevertebral soft tissue swelling. The odontoid is unremarkable. The soft tissue s of the neck and the lung apices are normal. XR/XR cervical spine 3V* [id number] Impression: 1. Intact anterior cervical disc fusion C5-C7. 2. Negative for cervical spine fracture.
--- NOTE | 2021-02-25 12:52 | XR_ITS ---
WS: [id number] Left shoulder, 3 views, 02/25/2021 Clinical Data: fall Comparison: None. Findings: No fractures or dislocations are seen. The AC joint shows minimal widening without any separation or dislocation.. The adjacent left clavicle, left scapula and ribs are normal. The soft tissues are unre markable. There is a small electronic device overlying the left sixth rib. XR/XR shoulder LT min 2V* [id number] Impression: 1. Widening of the left AC joint. 2. Negative for left shoulder fracture.
--- NOTE | 2021-02-25 12:52 | XR_ITS ---
WS: [id number] Left arm and humerus, 2 views, 3 views, 02/25/2021 Clinical Data: fall Comparison: None. Findings: No fractures or dislocations are seen. The shaft of the humerus is intact. XR/[place] [id number] Impression: Negative left arm and humerus.
--- NOTE | 2021-02-25 12:54 | W.ED.FALL ---
HPI - Fall General: Chief Complaint: Fall Stated Complaint: Fall, Pain in upper back,L arm, neck Time Seen by Provider: 02/25/21 12:34 History of Present Illness: HPI Narrative: Patient states she fell out of her shower today striking her left upper arm shoulder area and the back of her head and now she has neck pain shoulder and arm pain. Denies loss of consciousness. Fell when she slipped on bathtub mat. complaint: fall Onset (ago): hour(s) Fall from: standing Fall witnessed: no Place fall occurred: home Loss of consciousness: None Context: tripped/slipped Associated symptoms-after fall: Reports neck pain (Rigid c-collar in place); Denies abdominal pain, chest pain or headache(s) Review of Systems Const: Denies: fever(s), chills or body aches Eyes: Denies: change in vision or blurry vision ENMT: Denies: throat pain or nasal congestion Card: Denies: chest pain or dyspnea on exertion Resp: Denies: dyspnea, productive cough or non-productive cough GI: Denies: abdominal pain, nausea or vomiting Musc: Reports: neck pain (Rigid c-collar in place) and extremity pain Skin/Breast: Denies: rash Neuro: Denies: headache(s) Psych: Denies: anxiety or depression Nahum/Lymph: Denies: easy bruising PFSH ED PFSH: Medical History Asthma Diabetes Fibromyalgia High risk medication use Hypertension Immunization counseling Neuropathy Seronegative rheumatoid arthritis of both hands Surgical History H/O right knee surgery History of appendectomy History of hysterectomy History of shoulder surgery right Family History Other CAD (coronary artery disease) Diabetes Hypertension Rheumatoid arthritis Stroke Denies family history of Systemic lupus erythematosus (SLE) in adult Cancer Social History Smoking and tobacco status: never smoked Alcohol intake: never History of recent travel: No Physical Exam Const: COMMON NORMALS: no acute distress, average body habitus and patient oriented x3 HENMT: COMMON NORMALS: normocephalic HEAD & SCALP: normal to inspection and normocephalic FACE & SINUS: normal facial exam Eye: COMMON NORMALS: conjunctivae normal GENERAL EYE: appearance normal, both eyes and all related structures CONJUNCTIVA: Yes conjunctivae normal Neck/C-Spine: COMMON NORMALS: full ROM and no JVD CERVICAL SPINE: Yes Cervical spine tenderness C7 and Yes Paracervical muscle tenderness Chest: COMMONS NORMALS: normal inspection of the chest Resp: COMMON NORMALS: normal respiratory effort Cardio: COMMON NORMALS: no JVD GI: COMMON NORMALS: Normal to inspection, nondistended, normoactive bowel sounds present Extremity: COMMON NORMALS: normal to inspection LEFT UPPER EXTREMITY: Yes shoulder joint (Tender without swelling good range of motion) and Yes upper arm (Tender without swelling does have abrasion.) Neuro: COMMON NORMALS: patient oriented x3 Course Vital Signs: Vital signs: Vital Signs Temperature 98.1 F 02/25/21 12:30 Pulse Rate 54 L 02/25/21 12:30 Respiratory Rate 18 02/25/21 12:30 Blood Pressure 134/81 02/25/21 12:30 Pulse Oximetry 94 02/25/21 12:30 Discharge Plan Discharge Prescriptions: No Action metoprolol tartrate 25 mg tablet See Rx Instructions .ROUTE .COMPLEX RF: 0 aspirin 81 mg tablet,delayed release (DR/EC) 81 mg PO DAILY RF: 0 hydrochlorothiazide 25 mg tablet 25 mg PO DAILY RF: 0 magnesium 250 mg tablet 250 mg PO DAILY RF: 0 potassium 99 mg tablet 99 mg PO BID RF: 0 naproxen sodium [Flanax (naproxen)] 220 mg tablet 220 mg PO BID PRNRF: 0 cholecalciferol (vitamin D3) 50 mcg (2,000 unit) tablet 2,000 unit PO DAILY Qty: 90 RF: 0 famotidine 20 mg tablet 20 mg PO BID RF: 0 loratadine 10 mg tablet 10 mg PO DAILY RF: 0 nitroglycerin 0.4 mg tablet, sublingual 0.4 mg sublingual Q5M PRNRF: 0 (DME) Lace up ankle brace See Rx Instructions .ROUTE .MEDSUPPLY Qty: 1 RF: 0 hydroxychloroquine 200 mg tablet 200 mg PO BID Qty: 180 RF: 1 Humira Pen 40 mg/0.8 mL pen injector kit 40 mg SUBCUT Q14D Qty: 2 RF: 3 albuterol sulfate 2.5 mg /3 mL (0.083 %) Solution For Nebulization 2.5 mg INHALATION QID PRN (Reason: Wheezing) RF: 0 meclizine 25 mg Tablet 25 mg PO BID PRN (Reason: Nausea) RF: 0 ProAir HFA 90 mcg/actuation Hfa Aerosol Inhaler 2 puff INHALATION 6XD PRN (Reason: Wheezing) RF: 0 Excedrin Extra Strength 250-250-65 mg Tablet 1 tab PO Q6H PRN (Reason: Pain) RF: 0 Novolin 70/30 U-100 Insulin 100 unit/mL (70-30) Suspension See Rx Instructions .ROUTE .COMPLEX RF: 0 Novolin R Regular U-100 Insuln 100 unit/mL Solution See Rx Instructions .ROUTE .COMPLEX RF: 0 Coding Level of Care Code ED 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
--- NOTE | 2021-02-25 13:38 | PC.NURSE ---
Provider removed C-collar after cleared per xrays
[2021-02-25 13:47] VITALS: BP 126/73; PULSE 71; RESP 18; O2SAT 96
== END 2021-02-25 13:48 | disposition home or self-care (01) ==
PROVIDERS: Emergency Provider Nurse Practitioner Family; PCP Nurse Practitioner
DX: M54.6 Pain in thoracic spine (principal); M54.2 Cervicalgia; M25.512 Pain in left shoulder; M79.602 Pain in left arm; J45.909 Unspecified asthma, uncomplicated; E11.9 Type 2 diabetes mellitus without complications; I10 Essential (primary) hypertension; Z79.4 Long term (current) use of insulin
CPT/HCPCS: 72040; 73030; 73060; 99282

== ENCOUNTER → 2021-03-18 09:18 | Outpatient (BNVA) | payer MEDICARE, SELFPAY | PROVIDERS: PCP Nurse Practitioner; Visit Provider Internal Medicine Rheumatology | DX: Z71.89 Other specified counseling (principal); M79.7 Fibromyalgia; Z79.899 Other long term (current) drug therapy; M06.041 Rheumatoid arthritis without rheumatoid factor, right hand; M06.042 Rheumatoid arthritis without rheumatoid factor, left hand | CPT/HCPCS: 36415; 80076; 82565; 85025; 86140 ==

== ENCOUNTER → 2021-03-24 10:53 | Outpatient (BNVA) | payer MEDICARE, SELFPAY | PROVIDERS: PCP Nurse Practitioner; Visit Provider Internal Medicine Rheumatology | DX: M06.041 Rheumatoid arthritis without rheumatoid factor, right hand (principal); M06.042 Rheumatoid arthritis without rheumatoid factor, left hand; M79.7 Fibromyalgia; M75.101 Unspecified rotator cuff tear or rupture of right shoulder, not specified as traumatic; E11.9 Type 2 diabetes mellitus without complications; Z79.4 Long term (current) use of insulin; Z79.899 Other long term (current) drug therapy; Z71.89 Other specified counseling | CPT/HCPCS: 99214 ==

== ENCOUNTER → 2021-07-20 13:44 | Outpatient (BNVA) | payer MEDICARE, SELFPAY | PROVIDERS: PCP Nurse Practitioner; Visit Provider Internal Medicine Rheumatology | DX: M06.041 Rheumatoid arthritis without rheumatoid factor, right hand (principal); M06.042 Rheumatoid arthritis without rheumatoid factor, left hand; Z79.899 Other long term (current) drug therapy; M79.7 Fibromyalgia; R79.89 Other specified abnormal findings of blood chemistry; M75.101 Unspecified rotator cuff tear or rupture of right shoulder, not specified as traumatic; E11.9 Type 2 diabetes mellitus without complications; Z79.4 Long term (current) use of insulin; Z71.89 Other specified counseling | CPT/HCPCS: 99214 ==

== ENCOUNTER 2021-07-28 09:08 | Outpatient (CLI) | payer MEDICARE, SELFPAY ==
--- NOTE | 2021-07-28 09:15 | MM_ITS ---
WS: [id number] BILATERAL SCREENING DIGITAL MAMMOGRAM WITH CAD HISTORY: SCREENING COMPARISON: 12/05/2019 and 08/10/2018 Bilateral CC and MLO views submitted. Computer aided detection analyzed. Breast composition: There are scattered areas of fibroglandular density. No suspicious masses, microc alcifications or architectural distortion. Moderate vascular calcifications. There are a few scattere d round calcifications throughout each breast. MM/[place] [id number] IMPRESSION: BI-RADS: 2-Benign FOLLOW UP: 1 Year Follow-up
== END 2021-07-28 09:09 | disposition home or self-care (01) ==
PROVIDERS: PCP Nurse Practitioner; Visit Provider Family Medicine
DX: Z12.31 Encounter for screening mammogram for malignant neoplasm of breast (principal)
CPT/HCPCS: 77067

== ENCOUNTER 2021-07-28 09:59 | Outpatient (CLI) | payer MEDICARE, SELFPAY ==
[2021-07-28 10:20] LABS: Basophils # 0.1 10^3/uL (0.0-0.1); Basophils % 0.6 %; Eosinophils # 0.3 10^3/uL (0.0-0.8); Eosinophils % 2.1 %; Hematocrit 43.6 % (37.0-47.0); Hemoglobin 13.8 g/dL (11.5-15.3); Lymphocytes # 2.5 10^3/uL (0.8-4.8); Lymphocytes % 19.8 %; Mean Corpuscular HGB Conc 31.7 g/dL (30.0-36.0); Mean Corpuscular Volume 88.6 fl (81-99); Mean Platelet Volume 10.1 fL (7.4-10.4); Monocytes # 0.8 10^3/uL (0.2-0.9); Monocytes % 6.6 %; Neutrophils # 8.78 10^3/uL (1.8-7.7); Neutrophils % 70.6 %; Nucleated Red Blood Cells % 0 %; Platelet Count 332 10^3/cmm (130-400); Red Blood Count 4.92 10^6/uL (4.1-5.3); Red Cell Distribution Width 13.7 % (12.1-15.1); White Blood Count 12.4 10^3/uL (4.0-10.0)
[2021-07-28 10:41] LABS: Alanine Aminotransferase 25 U/L (0-33); Alkaline Phosphatase 107 IU/L (35-105); Aspartate Amino Transferase 19 U/L (0-32); Globulin 3.1 g/dL (1.3-4.6); Glomerular Filtration Rate 55.5 mL/min (90-130); Total Bilirubin 0.4 mg/dL (0.15-1.2); Total Protein 7.1 g/dL (6.6-8.7)
== END 2021-07-28 10:00 | disposition home or self-care (01) ==
PROVIDERS: PCP Nurse Practitioner; Visit Provider Internal Medicine Rheumatology
DX: M06.041 Rheumatoid arthritis without rheumatoid factor, right hand (principal); M06.042 Rheumatoid arthritis without rheumatoid factor, left hand; Z79.899 Other long term (current) drug therapy
CPT/HCPCS: 36415; 80076; 82565; 85025; 86140

== ENCOUNTER → 2021-11-18 12:38 | Outpatient (BNVA) | payer MEDICARE, SELFPAY | PROVIDERS: PCP Nurse Practitioner; Visit Provider Internal Medicine Rheumatology | DX: M06.041 Rheumatoid arthritis without rheumatoid factor, right hand (principal); M06.042 Rheumatoid arthritis without rheumatoid factor, left hand; Z79.899 Other long term (current) drug therapy; M79.7 Fibromyalgia; E11.9 Type 2 diabetes mellitus without complications; Z79.4 Long term (current) use of insulin; Z71.89 Other specified counseling | CPT/HCPCS: 99214 ==

== ENCOUNTER → 2022-01-11 09:38 | Outpatient (BNVA) | payer MEDICARE, SELFPAY | PROVIDERS: PCP Nurse Practitioner; Visit Provider Otolaryngology | DX: R13.10 Dysphagia, unspecified (principal); K21.9 Gastro-esophageal reflux disease without esophagitis; R49.0 Dysphonia | CPT/HCPCS: 31575; 99204 ==

== ENCOUNTER → 2022-01-25 09:05 | Outpatient (BNVA) | payer MEDICARE, SELFPAY | PROVIDERS: PCP Nurse Practitioner; Visit Provider Otolaryngology | DX: R49.0 Dysphonia (principal); R13.10 Dysphagia, unspecified | CPT/HCPCS: 99213 ==

== ENCOUNTER 2022-01-25 09:30 | Emergency (ER) | payer MEDICARE, SELFPAY ==
[2022-01-25 09:43] VITALS: BP 123/82; PULSE 81; RESP 19; TEMP 36; O2SAT 99; BMI 34.2
--- NOTE | 2022-01-25 10:09 | ED_ITS ---
HPI - General Adult General: Chief complaint: General Medical Stated complaint: sore throat Time Seen by Provider: 01/25/22 09:55 History of Present Illness: Patient is a 66-year-old female comes to the ED with fatigue. Patient has been sick for the past month and a half. She is had a sore throat nasal congestion drainage and cough. She has seen ENT twice within the last month she was diagnosed with some dysphagia due to pharyngeal candidiasis and has had a treated with Diflucan and clotrimazole. She saw ENT today January 25 and her sore throat, dysphagia has improved and ENT is putting her on another course of clotrimazole and he will see her back in a month. Patient still having a cough and says she has had decreased food and fluid intake due to her symptoms over the past month. She says she is lost close to 10 pounds. Denies any fever, chills, nausea, vomiting, bladder or bowel symptoms. Patient states she has been on 2 antibiotics over the past month as well to treat sinus infection. Associated symptoms: Deny chest pain, dyspnea, headache(s), nausea, rash, palpitations or vomiting Review of Systems Const: Denies: fever(s), chills or fatigue Eyes: Denies: change in vision or eye discomfort ENMT: Reports: throat pain, nasal discharge and nasal congestion; Denies: odynophagia Card: Denies: chest pain, palpitations, edema, swelling of feet/ankles, dyspnea on exertion or orthopnea Resp: Reports: productive cough; Denies: dyspnea or non-productive cough GI: Denies: abdominal pain, nausea, vomiting, diarrhea, constipation or hematochezia : Denies: flank pain, dysuria or hematuria Musc: Denies: neck pain, back pain or extremity swelling Skin/Breast: Denies: rash or new lesions Neuro: Denies: headache(s), numbness in extremities or weakness in extremities PFSH ED PFSH: Medical History Asthma Diabetes Fibromyalgia High risk medication use Hypertension Immunization counseling Neuropathy Seronegative rheumatoid arthritis of both hands Surgical History H/O right knee surgery History of appendectomy History of hysterectomy History of shoulder surgery right Family History Other CAD (coronary artery disease) Diabetes Hypertension Rheumatoid arthritis Stroke Denies family history of Systemic lupus erythematosus (SLE) in adult Cancer Social History Smoking and tobacco status: never smoked Alcohol intake: never History of recent travel: No Physical Exam Const: COMMON NORMALS: no acute distress, patient oriented x3 and alert GENERAL APPEARANCE: cooperative and comfortable HENMT: COMMON NORMALS: normocephalic HEAD & SCALP: normocephalic MOUTH: Normal oral and palatal mucosa present THROAT: posterior oropharynx normal and uvula midline Neck/C-Spine: COMMON NORMALS: supple GENERAL: Yes normal visual inspection Resp: COMMON NORMALS: normal respiratory effort, No retractions, No use of accessory muscles and clear to auscultation bilaterally AUSCULTATION: clear t o auscultation bilaterally Cardio: COMMON NORMALS: regular rate, regular rhythm, S1 normal heart sound present, S2 normal heart sound present, No gallops present (Cardio), No clicks present (Cardio), No murmurs present (Cardio) and Peripheral pulses 2+ throughout RATE: regular rate RHYTHM: regular rhythm HEART SOUNDS: S1 normal heart sound present and S2 normal heart sound present PERIPHERAL PULSES: Peripheral pulses 2+ throughout GI: COMMON NORMALS: Normal to inspection, nondistended, normoactive bowel sounds present, Soft to palpation, non-tender and no masses PALPATION: Yes Soft to palpation : COMMON NORMALS: Yes no CVA tenderness BLADDER/KIDNEY EXAM: Yes no CVA tenderness Back/Pelvis: COMMON NORMALS: no CVA tenderness Extremity: COMMON NORMALS: normal to inspection Neuro: COMMON NORMALS: patient oriented x3 and moves all extremities SENSORIUM/ORIENTATION: Yes alert Skin: GENERAL SKIN EXAM: dry skin Course Vital Signs: Vital signs: Vital Signs Temperature 96.8 F L 01/25/22 09:43 Pulse Rate 81 01/25/22 09:43 Respiratory Rate 19 H 01/25/22 09:43 Blood Pressure 123/82 01/25/22 09:43 Pulse Oximetry 99 01/25/22 09:43 [facility] - General Adult Medical Decision Making Patient is a 66-year-old female comes to the ED with fatigue. Patient has been sick for the past month and a half. She is had a sore throat nasal congestion drainage and cough. She has seen ENT twice within the last month she was diagnosed with some dysphagia due to pharyngeal candidiasis and has had a treated with Diflucan and clotrimazole. She saw ENT today January 25 and her sore throat, dysphagia has improved and ENT is putting her on another course of clotrimazole and he will see her back in a month. Patient says her sore throat and dysphagia are improving with current treatment. Vitals are stable. Exam of patient is benign. She appears nontoxic and in no acute distress or pain. Labs are unremarkable. Chest x-ray shows no acute findings. EKG shows no acute findings. COVID test was negative. Patient was diagnosed with upper respiratory viral infection and was discharged home. Told to follow-up with PCP in the next week for reevaluation. Return to ED precautions given. Patient understood and agreed with plan. Lab Data I reviewed the patient's lab results. : 01/25/22 10:19 01/25/22 10:19 Radiology Impressions Chest X-Ray 01/25/22 10:47 IMPRESSION: No significant cardiopulmonary abnormality. Laboratory Results WBC 8.6 10^3/uL (4.0-10.0) 01/25/22 10:19 RBC 4.98 10^6/uL (4.1-5.3) 01/25/22 10:19 Hgb 14.5 g/dL (11.5-15.3) 01/25/22 10:19 Hct 44.5 % (37.0-47.0) 01/25/22 10:19 MCV 89.4 fl (81-99) 01/25/22 10:19 MCH 29.1 pg (28.0-34.0) 01/25/22 10:19 MCHC 32.6 g/dL (30.0-36.0) 01/25/22 10:19 RDW 13.1 % (12.1-15.1) 01/25/22 10:19 Plt Count 320 10^3/cmm (130-400) 01/25/22 10:19 MPV 10.2 fL (7.4-10.4) 01/25/22 10:19 Neut % (Auto) 63.6 % 01/25/22 10:19 Lymph % (Auto) 25.1 % 01/25/22 10:19 Becker % (Auto) 6.3 % 01/25/22 10:19 Eos % (Auto) 4.0 % 01/25/22 10:19 Baso % (Auto) 0.7 % 01/25/22 10:19 Neut # (Auto) 5.47 10^3/uL (1.8-7.7) 01/25/22 10:19 Lymph # (Auto) 2.2 10^3/uL (0.8-4.8) 01/25/22 10:19 Becker # (Auto) 0.5 10^3/uL (0.2-0.9) 01/25/22 10:19 Eos # (Auto) 0.3 10^3/uL (0.0-0.8) 01/25/22 10:19 Baso # (Auto) 0.1 10^3/uL (0.0-0.1) 01/25/22 10:19 Nucleated RBC % (auto) 0 % 01/25/22 10:19 Nucleated RBCs # 0.0 /100WBC 01/25/22 10:19 Sodium 134 mmol/L (136-145) L 01/25/22 10:19 Potassium 4.2 mmol/L (3.5-5.1) 01/25/22 10:19 Chloride 96 mmol/L (98-107) L 01/25/22 10:19 Carbon Dioxide 26 mmol/L (22-29) 01/25/22 10:19 Anion Gap 16.2 (5-19) 01/25/22 10:19 BUN 10 mg/dL (8-23) 01/25/22 10:19 Creatinine 0.9 mg/dL (0.5-0.9) 01/25/22 10:19 GFR Calculation 62.6 mL/min (90-130) L 01/25/22 10:19 Glucose 141 mg/dL (65-115) H 01/25/22 10:19 Calculated Osmolality 279 mOsm/kg (285-295) L 01/25/22 10:19 Calcium 9.4 mg/dL (8.5-10.5) 01/25/22 10:19 Total Bilirubin 0.4 mg/dL (0.15-1.2) 01/25/22 10:19 AST 20 U/L (0-32) 01/25/22 10:19 ALT 29 U/L (0-33) 01/25/22 10:19 Alkaline Phosphatase 83 IU/L (35-105) 01/25/22 10:19 Troponin T Baseline 9 ng/L (0-10) 01/25/22 10:19 Troponin T 120 Minute 9.08 ng/L (0-10) 01/25/22 12:07 Delta Troponin T 0.08 ABS# (0-10) 01/25/22 12:07 Total Protein 7.2 g/dL (6.6-8.7) 01/25/22 10:19 Albumin 4.2 g/dL (3.5-5.2) 01/25/22 10:19 Globulin 3.0 g/dL (1.3-4.6) 01/25/22 10:19 Influenza Type A Ag Negative (Negative) 01/25/22 10:19 Influenza Type B Ag Negative (Negative) 01/25/22 10:19 SARS-CoV-2 RNA (RT-PCR) Not detected (NOT DETECTED) 01/25/22 10:19 Group A Strep Rapid Negative (Negative) 01/25/22 10:19 EKG Data EKG 1: EKG interpretation date: 01/25/22 Interpretation: Sinus rhythm, 71 bpm, no ST segment elevation or depression seen. 1 PVC noted. Computer generated interpretation: Chest X-Ray 01/25/22 10:47 IMPRESSION: No significant cardiopulmonary abnormality. Discharge Plan Discharge Patient Disposition: Home Clinical Impression: Upper respiratory infection, viral Condition: Stable Prescriptions: No Action aspirin 81 mg tablet,delayed release (DR/EC) 81 mg PO DAILY 0RF Humira Pen 40 mg/0.8 mL pen injector kit 40 mg SUBCUT Q14D Qty: 2 3RF hydroxychloroquine 200 mg tablet 200 mg PO BID Qty: 180 1RF prednisone 2.5 mg tablet See Rx Instructions PO .COMPLEX PRN (Reason: joint pain flare) Qty: 60 0RF Rx Instructions: take 1 tab daily for 3-7 days prn joint pain flare PO PRN; hydrochlorothiazide 25 mg tablet 12.5 mg PO DAILY 0RF naproxen sodium [Flanax (naproxen)] 220 mg tablet 220 mg PO BID PRN0RF cholecalciferol (vitamin D3) 50 mcg (2,000 unit) tablet 2,000 unit PO DAILY Qty: 90 0RF famotidine 20 mg tablet 20 mg PO BID 0RF loratadine 10 mg tablet 10 mg PO DAILY 0RF nitroglycerin 0.4 mg tablet, sublingual 0.4 mg sublingual Q5M PRN0RF Rx Instructions: do not exceed 3 doses per episode (DME) Lace up ankle brace See Rx Instructions .ROUTE .MEDSUPPLY Qty: 1 0RF Rx Instructions: As directed metoprolol tartrate 25 mg tablet 12.5 mg PO BID Qty: 90 3RF fluticasone propionate 110 mcg/actuation HFA aerosol inhaler 2 puff inhalation BID 0RF fluticasone propionate 50 mcg/actuation spray,suspension 1 spray intranasal DAILY 0RF Rx Instructions: administer into each nostril potassium chloride PO 0RF magnesium 200 mg tablet 200 mg PO DAILY 0RF omeprazole 20 mg capsule,delayed release(DR/EC) 20 mg PO DAILY 0RF fluconazole [Diflucan] 200 mg tablet 200 mg PO DAILY 10 Days Qty: 10 0RF clotrimazole 10 mg luiza 10 mg mucous membrane TID 30 Days Qty: 90 0RF Rx Instructions: Take 1 in mouth and dissolve and swallow 3 times daily for 30 days albuterol sulfate 2.5 mg /3 mL (0.083 %) Solution For Nebulization 2.5 mg INHALATION QID PRN (Reason: Wheezing) 0RF meclizine 25 mg Tablet 25 mg PO BID PRN (Reason: Nausea) 0RF ProAir HFA 90 mcg/actuation Hfa Aerosol Inhaler 2 puff INHALATION 6XD PRN (Reason: Wheezing) 0RF Excedrin Extra Strength 250-250-65 mg Tablet 1 tab PO Q6H PRN (Reason: Pain) 0RF Novolin R Regular U-100 Insuln 100 unit/mL solution See Rx Instructions .ROUTE .COMPLEX PRN0RF Rx Instructions: PT STATES SHE USES A SLIDING SCALE BID PRN; Discharge Orders: Discharge ED (Routine); Ordered 01/25/22 Ordered By: Armando Colindres Referrals: Candi Weathers, PAINT LINE OPERATOR [Primary Care Provider] - Discharge Diet: Regular Discharge Activity: Increase activity as tolerated Patient Instructions: Upper Respiratory Infection (DC) Activity Restrictions/Additional Instructions: Follow-up with medical provider as directed 5 to 7 days for reevaluation. Your COVID test is pending and results should be back within the next 48 hours. [facility] should contact you if results are positive but I recommend you calling [facility] to find out test results if you have not heard from them and after 48 hours. Continue taking all previously prescribed home medications. Return to the ER or your medical provider if condition worsens. Please read and understand discharge instructions. [facility] you [facility]. Please realize this is an emergency room and that we are providing you with a medical screening exam and this may not be complete and all inclusive of all the testing and or work up that you may need to determine your ailment or severity of your illness. It is very important that you follow up as instructed or that you return to the Emergency Department should you have concerns or if your condition changes or worsens in any way. 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
[2022-01-25 10:32] LABS: Basophils # 0.1 10^3/uL (0.0-0.1); Basophils % 0.7 %; Eosinophils # 0.3 10^3/uL (0.0-0.8); Hematocrit 44.5 % (37.0-47.0); Hemoglobin 14.5 g/dL (11.5-15.3); Lymphocytes # 2.2 10^3/uL (0.8-4.8); Lymphocytes % 25.1 %; Mean Corpuscular HGB Conc 32.6 g/dL (30.0-36.0); Mean Corpuscular Hemoglobin 29.1 pg (28.0-34.0); Mean Corpuscular Volume 89.4 fl (81-99); Mean Platelet Volume 10.2 fL (7.4-10.4); Monocytes # 0.5 10^3/uL (0.2-0.9); Monocytes % 6.3 %; Neutrophils # 5.47 10^3/uL (1.8-7.7); Neutrophils % 63.6 %; Nucleated Red Blood Cells % 0 %; Platelet Count 320 10^3/cmm (130-400); Red Blood Count 4.98 10^6/uL (4.1-5.3); Red Cell Distribution Width 13.1 % (12.1-15.1); White Blood Count 8.6 10^3/uL (4.0-10.0)
--- NOTE | 2022-01-25 10:47 | XRR_ITS ---
PROCEDURE INFORMATION: Exam: XR Chest Exam date and time: 01/25/2022 11:18 AM Age: 66 years old Clinical indication: Cough; Prior surgery; Surgery type: Diabetic sensor right side; Additional info: Fatigue and cough TECHNIQUE: Imaging protocol: Radiologic exam of the chest. Views: 1 view. COMPARISON: CR XR chest 1V portable [id number] 09/03/2019 10:39 AM FINDINGS: Tubes, catheters and devices: The diabetic sensor device projects on the right base. Lungs: Unremarkable. No consolidation. Pleural spaces: Unremarkable. No pleural effusion. No pneumothorax. Heart/Mediastinum: Unremarkable. No cardiomegaly. Bones/joints: There is a metal plate with screws from cervical spine fusion surgery. XR/XR chest 1V portable [id number] IMPRESSION: No significant cardiopulmonary abnormality.
[2022-01-25 10:49] LABS: Rapid Strep A Test Negative (Negative)
[2022-01-25 10:50] LABS: Alanine Aminotransferase 29 U/L (0-33); Albumin Level 4.2 g/dL (3.5-5.2); Alkaline Phosphatase 83 IU/L (35-105); Anion Gap 16.2 (5-19); Aspartate Amino Transferase 20 U/L (0-32); Blood Urea Nitrogen 10 mg/dL (8-23); Calcium 9.4 mg/dL (8.5-10.5); Carbon Dioxide 26 mmol/L (22-29); Chloride 96 mmol/L (98-107); Glomerular Filtration Rate 62.6 mL/min (90-130); Glucose 141 mg/dL (65-115); Osmolality Calculated 279 mOsm/kg (285-295); Potassium 4.2 mmol/L (3.5-5.1); Sodium 134 mmol/L (136-145); Total Bilirubin 0.4 mg/dL (0.15-1.2); Total Protein 7.2 g/dL (6.6-8.7)
[2022-01-25 10:58] LABS: Influenza A by IFA Negative (Negative); Influenza B by IFA Negative (Negative)
[2022-01-25 11:06] LABS: Troponin(5th) Baseline 9 ng/L (0-10)
[2022-01-25] MEDS: sodium chloride 0.9% 500 ML 999 ML IV (11:22)
[2022-01-25 12:42] LABS: Troponin 5 2HR 9.08 ng/L (0-10)
--- NOTE | 2022-01-25 12:48 | ECG_ITS ---
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 Measurements Intervals [place] Rate: 71 P: 30 IA: 174 QRS: 17 QRSD: 97 T: 22 QT: 417 QTc: 454 Interpretive Statements SINUS RHYTHM WITH OCCASIONAL VENTRICULAR PREMATURE COMPLEXES LOW QRS VOLTAGE IN PRECORDIAL LEADS [QRS DEFLECTION < 1.0 mV IN CHEST LEADS] POSSIBLE ANTERIOR MYOCARDIAL INFARCTION , PROBABLY OLD [30 ms Q WAVE IN V3/V4, OR R < 0.2 mV IN V4] Compared to ECG 09/03/2019 12:22:51 Ventricular premature complex(es) now present Low QRS voltage now present Myocardial infarct finding now present Sinus bradycardia no longer present Electronically Signed On 01-25-2022 18:23:40 CDT by Juan Mai M.D. [id number]
[2022-01-25 12:56] LABS: Troponin 5 2HR Delta 0.08 ABS# (0-10)
[2022-01-26 15:02] LABS: Quest SARS-CoV-2 RNA NOT DETECTED (NOT DETECTED)
== END 2022-01-25 13:11 | disposition home or self-care (01) ==
PROVIDERS: Emergency Provider Physician Assistant; PCP Nurse Practitioner
DX: J06.9 Acute upper respiratory infection, unspecified (principal); Z79.82 Long term (current) use of aspirin; Z79.4 Long term (current) use of insulin; E11.9 Type 2 diabetes mellitus without complications; I10 Essential (primary) hypertension; Z20.822 Contact with and (suspected) exposure to COVID-19; R49.0 Dysphonia; R13.10 Dysphagia, unspecified
CPT/HCPCS: 71045; 80053; 84484; 85025; 87081; 87635; 87804; 87880; 93005; 96360; 99213; 99285; J7040

== ENCOUNTER → 2022-02-26 08:15 | Outpatient (BNVA) | payer MEDICARE, SELFPAY | PROVIDERS: PCP Nurse Practitioner; Visit Provider Otolaryngology | DX: R49.0 Dysphonia (principal); B37.81 Candidal esophagitis; B37.0 Candidal stomatitis | CPT/HCPCS: 99213 ==

== ENCOUNTER → 2022-03-24 12:29 | Outpatient (BNVA) | payer MEDICARE, SELFPAY | PROVIDERS: PCP Family Medicine; Visit Provider Internal Medicine Rheumatology | DX: M06.041 Rheumatoid arthritis without rheumatoid factor, right hand (principal); M06.042 Rheumatoid arthritis without rheumatoid factor, left hand; B37.81 Candidal esophagitis; B37.0 Candidal stomatitis; Z79.899 Other long term (current) drug therapy; E11.9 Type 2 diabetes mellitus without complications; Z79.4 Long term (current) use of insulin; M79.7 Fibromyalgia; M75.101 Unspecified rotator cuff tear or rupture of right shoulder, not specified as traumatic | CPT/HCPCS: 99214 ==

== ENCOUNTER → 2022-04-07 07:29 | Outpatient (BNVA) | payer MEDICARE, SELFPAY | PROVIDERS: PCP Family Medicine; Visit Provider Otolaryngology | DX: B37.81 Candidal esophagitis (principal); B37.0 Candidal stomatitis | CPT/HCPCS: 87102; 87206; 99213 ==

== ENCOUNTER → 2022-04-15 08:16 | Outpatient (BNVA) | payer MEDICARE, SELFPAY | PROVIDERS: PCP Family Medicine; Visit Provider Student in an Organized Health Care Education/Training Program | DX: B37.81 Candidal esophagitis (principal) | CPT/HCPCS: 99203 ==

== ENCOUNTER → 2022-05-03 13:35 | Outpatient (BNVA) | payer MEDICARE, SELFPAY | PROVIDERS: PCP Family Medicine; Visit Provider Otolaryngology | DX: R49.0 Dysphonia (principal); R13.10 Dysphagia, unspecified | CPT/HCPCS: 31575; 99213 ==

== ENCOUNTER → 2022-06-22 10:48 | Outpatient (BNVA) | payer MEDICARE, SELFPAY | PROVIDERS: PCP Family Medicine; Visit Provider Internal Medicine Rheumatology | DX: M06.041 Rheumatoid arthritis without rheumatoid factor, right hand (principal); M06.042 Rheumatoid arthritis without rheumatoid factor, left hand; Z79.899 Other long term (current) drug therapy; E11.9 Type 2 diabetes mellitus without complications; Z79.4 Long term (current) use of insulin; B37.81 Candidal esophagitis; B37.0 Candidal stomatitis; Z71.89 Other specified counseling; K12.1 Other forms of stomatitis | CPT/HCPCS: 80076; 82180; 82565; 82607; 82728; 84252; 85025; 86140; 99214 ==

== ENCOUNTER → 2022-08-30 10:48 | Outpatient (BNVA) | payer MEDICARE, SELFPAY | PROVIDERS: PCP Family Medicine; Visit Provider Internal Medicine Cardiovascular Disease | DX: R07.9 Chest pain, unspecified (principal); R06.00 Dyspnea, unspecified; I49.3 Ventricular premature depolarization; I10 Essential (primary) hypertension; E11.9 Type 2 diabetes mellitus without complications; Z79.4 Long term (current) use of insulin | CPT/HCPCS: 99214; Q3014 ==

== ENCOUNTER → 2022-10-14 11:03 | Outpatient (BNVA) | payer MEDICARE, SELFPAY | PROVIDERS: PCP Family Medicine; Visit Provider Internal Medicine Rheumatology | DX: M06.041 Rheumatoid arthritis without rheumatoid factor, right hand (principal); M06.042 Rheumatoid arthritis without rheumatoid factor, left hand; Z79.899 Other long term (current) drug therapy; B37.81 Candidal esophagitis; B37.0 Candidal stomatitis; E11.9 Type 2 diabetes mellitus without complications; Z79.4 Long term (current) use of insulin; Z71.89 Other specified counseling; K12.1 Other forms of stomatitis | CPT/HCPCS: 99214 ==

== ENCOUNTER 2022-11-09 09:20 | Outpatient (CLI) | payer MEDICARE, SELFPAY ==
--- NOTE | 2022-11-09 09:30 | USCV_ITS ---
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
== END 2022-11-09 09:21 | disposition home or self-care (01) ==
LOC: RAD 09:22
PROVIDERS: PCP Family Medicine; Visit Provider Family Medicine
DX: M79.671 Pain in right foot (principal); M79.672 Pain in left foot
CPT/HCPCS: 93922

== ENCOUNTER → 2023-01-13 10:54 | Outpatient (BNVA) | payer MEDICARE, SELFPAY | PROVIDERS: PCP Family Medicine; Visit Provider Internal Medicine Rheumatology | DX: M06.041 Rheumatoid arthritis without rheumatoid factor, right hand (principal); M06.042 Rheumatoid arthritis without rheumatoid factor, left hand; E11.9 Type 2 diabetes mellitus without complications; B37.0 Candidal stomatitis; B37.81 Candidal esophagitis; K12.1 Other forms of stomatitis; Z71.89 Other specified counseling; Z79.4 Long term (current) use of insulin; Z79.899 Other long term (current) drug therapy | CPT/HCPCS: 99214 ==

== ENCOUNTER → 2023-09-06 08:15 | Outpatient (BNVA) | payer MEDICARE, SELFPAY | PROVIDERS: PCP Family Medicine; Visit Provider Family Medicine | DX: I49.8 Other specified cardiac arrhythmias (principal) | CPT/HCPCS: 93005 ==

== ENCOUNTER → 2023-09-29 11:56 | Outpatient (BNVA) | payer MEDICARE, SELFPAY | PROVIDERS: PCP Family Medicine; Visit Provider Internal Medicine Cardiovascular Disease | DX: I10 Essential (primary) hypertension (principal); I49.3 Ventricular premature depolarization; R07.9 Chest pain, unspecified; R06.00 Dyspnea, unspecified; I49.8 Other specified cardiac arrhythmias | CPT/HCPCS: 99214 ==

== ENCOUNTER 2023-10-11 06:53 | Outpatient (CLI) | payer MEDICARE, SELFPAY ==
[2023-10-11 07:42] VITALS: BMI 35.0
--- NOTE | 2023-10-11 07:42 | ECG_ITS ---
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 Interpretive Statements NAME OF STUDY: LEXISCAN SESTAMIBI STRESS TEST INDICATION: [Chest Pain, ] Procedure: At the baseline, the blood pressure was 136/74 mmHg with a heart rate of 68 bpm. The electrocardiogram showed normal sinus rhythm, normal axis with normal ST and T's. The Lexiscan was infused over a period of 20 seconds. A total of 0.4 mg of Lexiscan was infused. The stress phase was continued for a total of 5 minutes. Heart rate was at the end of stress phase was 90 bpm and a blood pressure of 129/70 mmHg. The EKG at the peak infusion revealed normal sinus rhythm with no significant ST-T wave changes. Frequent PVCs were seen Sestamibi was injected 20 seconds after the Lexiscan infusion. Blood pressure at the end of recovery phase was 141/69 mmHg with a heart rate of 81 bpm. Conclusion: 1. Normal EKG response to Lexiscan infusion 2. No Lexiscan induced chest pain or cardiac arrhythmia. 3. Normal blood pressure and heart rate response. 4. Sestamibi/sestamibi perfusion scan pending; see separate report. Electronically Signed On 10-17-2023 12:25:41 CDT by Juan Mai M.D. [id number]
--- NOTE | 2023-10-11 07:42 | NMCV_ITS ---
NM nicole perf SPECT r/s* [id number] Leydi Piper Age: 68 Gender: F : 1955 Exam Date: 10/11/2023 07:42 Ordering Phys: Ish Felix MD ([email or web address]) Technologist: KUSUM Tirado Exam Location: [facility] Indications: CHEST PAIN STRESS TEST Please see separate stress test report in [facility] for full findings IMAGE PROTOCOL Rest/Stress 1 Lexiscan Day Radiopharmaceutical Dose (mCi) Administration Site Administered by Rest: Tc-99m 10.6 IV KUSUM [place] Sestamibi Stress:Tc-99m 32.9 IV KUSUM [place]brook Sestamibi Rest: 11-Oct-2023 60 Discovery 630 Stress: 11-Oct-2023 30 Discovery 630 0.4mg Lexiscan. Images obtained in supine and prone position. SPECT RESULTS Technical Quality: Excellent Raw Data Analysis: Normal Image Corrections: No attenuation or motion correction applied Summed Stress Score: 5 Summed Rest Score: 6 Summed Difference Score: 0 PERFUSION FINDINGS There is medium sized area of moderate intensity, mostly fixed perfusion defect in apical lateral and inferolateral gaona. This is consistent with medium sized area of prior infarct with minimal jenny-infarct ischemia in left circumflex artery territory. FUNCTIONAL RESULTS (calculated via Gated SPECT) Stress Image LV EF (%): 77 Stress EDV (mL):71 TID: 1.16 Stress ESV (mL):16 FUNCTIONAL FINDINGS: There is normal left ventricular systolic function. IMPRESSIONS 1. Medium sized area of prior infarct with minimal jenny-infarct ischemia seen in the left circumflex artery territory. 2 LV systolic function is normal Juan Mai MD (Electronically Signed) Final Date: 11 October 2023 11:33 S
[2023-10-11] MEDS: regadenoson 0.4 Mg/5 ml Syringe 0.400000000000000022 MG IVP (08:36)
[2023-10-11 08:48] VITALS: BP 141/69; PULSE 88
== END 2023-10-11 06:54 | disposition home or self-care (01) ==
PROVIDERS: PCP Family Medicine; Visit Provider Internal Medicine Cardiovascular Disease
DX: R07.9 Chest pain, unspecified (principal)
CPT/HCPCS: 36415; 78452; 93017; 96374; A9500; J2785

== ENCOUNTER 2023-11-10 13:41 | Outpatient (CLI) | payer MEDICARE, SELFPAY ==
--- NOTE | 2023-11-10 13:45 | MM_ITS ---
WS: [id number] BILATERAL SCREENING DIGITAL TOMOSYNTHESIS MAMMOGRAM WITH CAD HISTORY: SCREENING COMPARISON: 07/28/2021, 12/05/2019 Bilateral CC and MLO views with tomosynthesis and synthetic mammography submitted. Computer aided det ection analyzed. Breast composition: There are scattered areas of fibroglandular density. No suspicious masses, microc alcifications or architectural distortion. Bilateral moderate arterial calcifications. Scattered bila teral benign calcifications. IMPRESSION: MM/[place] [id number] BI-RADS: 2-Benign FOLLOW UP: 1 Year Follow-up
== END 2023-11-10 13:42 | disposition home or self-care (01) ==
LOC: MOBLMAM 13:45
PROVIDERS: PCP Family Medicine; Visit Provider Family Medicine
DX: Z12.31 Encounter for screening mammogram for malignant neoplasm of breast (principal); R92.323 Mammographic fibroglandular density, bilateral breasts; R92.1 Mammographic calcification found on diagnostic imaging of breast
CPT/HCPCS: 77063; 77067

== ENCOUNTER → 2023-11-15 09:27 | Outpatient (BNVA) | payer MEDICARE, SELFPAY | PROVIDERS: PCP Family Medicine; Visit Provider Internal Medicine Rheumatology | DX: M06.041 Rheumatoid arthritis without rheumatoid factor, right hand (principal); M06.042 Rheumatoid arthritis without rheumatoid factor, left hand; Z79.899 Other long term (current) drug therapy; B37.81 Candidal esophagitis; B37.0 Candidal stomatitis; E11.9 Type 2 diabetes mellitus without complications; Z79.4 Long term (current) use of insulin; Z71.89 Other specified counseling; K12.1 Other forms of stomatitis | CPT/HCPCS: 36415; 80076; 82565; 85025; 86140; 99214 ==

== ENCOUNTER → 2024-04-03 09:42 | Outpatient (BNVA) | payer MEDICARE, SELFPAY | PROVIDERS: PCP Family Medicine; Visit Provider Nurse Practitioner Family | DX: I49.8 Other specified cardiac arrhythmias (principal) | CPT/HCPCS: 99213 ==

== ENCOUNTER → 2024-05-15 09:35 | Outpatient (BNVA) | payer MEDICARE, SELFPAY | PROVIDERS: PCP Family Medicine; Visit Provider Internal Medicine Rheumatology | DX: M53.3 Sacrococcygeal disorders, not elsewhere classified (principal); G89.29 Other chronic pain; Z79.899 Other long term (current) drug therapy; M06.041 Rheumatoid arthritis without rheumatoid factor, right hand; M06.042 Rheumatoid arthritis without rheumatoid factor, left hand; B37.81 Candidal esophagitis; B37.0 Candidal stomatitis; E11.9 Type 2 diabetes mellitus without complications; Z79.4 Long term (current) use of insulin; Z71.89 Other specified counseling; K12.1 Other forms of stomatitis | CPT/HCPCS: 72202; 80076; 82565; 85025; 85651; 86140; 99214 ==

== ENCOUNTER → 2024-08-16 13:23 | Outpatient (BNVA) | payer MEDICARE, SELFPAY | PROVIDERS: PCP Family Medicine; Visit Provider Nurse Practitioner Family | DX: R39.9 Unspecified symptoms and signs involving the genitourinary system (principal) | CPT/HCPCS: 81000 ==

== ENCOUNTER → 2024-09-18 07:49 | Outpatient (BNVA) | payer MEDICARE, SELFPAY | PROVIDERS: PCP Family Medicine; Referring Provider Family Medicine; Visit Provider Nurse Practitioner Family | DX: L81.4 Other melanin hyperpigmentation (principal); L57.8 Other skin changes due to chronic exposure to nonionizing radiation; D18.01 Hemangioma of skin and subcutaneous tissue; L82.0 Inflamed seborrheic keratosis; L53.8 Other specified erythematous conditions; L29.89 Other pruritus; D48.5 Neoplasm of uncertain behavior of skin; L57.0 Actinic keratosis; L56.8 Other specified acute skin changes due to ultraviolet radiation | CPT/HCPCS: 11102; 17000; 17110; 99203 ==

== ENCOUNTER → 2024-10-02 12:41 | Outpatient (BNVA) | payer MEDICARE, SELFPAY | PROVIDERS: PCP Family Medicine; Visit Provider Internal Medicine Cardiovascular Disease | DX: I12.9 Hypertensive chronic kidney disease with stage 1 through stage 4 chronic kidney disease, or unspecified chronic kidney disease (principal); N18.2 Chronic kidney disease, stage 2 (mild); I49.3 Ventricular premature depolarization; E11.22 Type 2 diabetes mellitus with diabetic chronic kidney disease; Z79.85 Long-term (current) use of injectable non-insulin antidiabetic drugs; I25.9 Chronic ischemic heart disease, unspecified | CPT/HCPCS: 99214 ==

== ENCOUNTER 2024-10-16 10:02 | Inpatient (IN) | payer MEDICARE, SELFPAY ==
[2024-10-16] VITALS (63 sets, daily range): BP systolic 101–155; BP diastolic 54–99; PULSE 61–86; RESP 10–28; TEMP 36.3–37.1; O2SAT 89–97; BMI 33.9; BMI 35.0
--- NOTE | 2024-10-16 10:07 | ECG_ITS ---
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 Measurements Intervals [place] Rate: 63 P: 49 AR: 171 QRS: 11 QRSD: 100 T: 28 QT: 430 QTc: 443 Interpretive Statements SINUS RHYTHM LOW QRS VOLTAGE IN PRECORDIAL LEADS [QRS DEFLECTION < 1.0 mV IN CHEST LEADS] Compared to ECG 01/25/2022 11:36:35 Ventricular premature complex(es) no longer present Myocardial infarct finding no longer present Electronically Signed On 10-20-2024 18:30:20 CDT by Juan Mai M.D. [email or web address] [id number]
--- NOTE | 2024-10-16 10:09 | XRR_ITS ---
PROCEDURE INFORMATION: Exam: XR Chest Exam date and time: 10/16/2024 10:14 AM Age: 69 years old Clinical indication: Pain; Angina pectoris; Additional info: Chest pain TECHNIQUE: Imaging protocol: Radiologic exam of the chest. Views: 1 view. COMPARISON: CR XR chest 1V portable [id number] 01/25/2022 11:18 AM FINDINGS: Lungs: Unremarkable. No consolidation. Pleural spaces: Unremarkable. No pleural effusion. No pneumothorax. Heart/Mediastinum: Cardiac silhouette appears mildly enlarged on this portable chest, unchanged. Bones/joints: Prior ACDF. No acute bony abnormalities.. XR/XR chest 1V portable [id number] IMPRESSION: Mild cardiomegaly unchanged, otherwise negative chest.
--- NOTE | 2024-10-16 10:33 | W.ED.CHESTPA ---
HPI - Chest Pain General: Chief Complaint: Chest Pain Stated Complaint: chest pain Time Seen by Provider: 10/16/24 10:08 History of Present Illness: 69-year-old female who presents to the emergency room with complaints of pain in her chest rating to her back. At times he goes into arm and shoulder she associates it with exertion and is relieved by rest this been going on for several weeks she says getting more intense over time. It will resolve after 15 to 20 minutes of rest. She is seen Dr. Bryant a couple of weeks ago regarding this. She had a stress test in September 2023 that showed previous infarct with some. Infarct ischemia in the distribution of his circumflex artery. She has not previously had a cardiac catheterization. She is prescription for nitro on her medicine list but she has not used any when she gets these episodes. She states she still has a little bit of pressure/discomfort but no pain at this time. She has not previously had any angiography or stenting per her report. Associated symptoms: Deny abdominal pain, dyspnea or fever(s) Related Data Home Medications ?Medication ?Instructions ?Recorded ?Confirmed acetaminophen 500 mg tablet 500 mg PO BID PRN OA 10/02/24 10/16/24 (Tylenol Extra Strength) levocetirizine 5 mg tablet 5 mg PO DAILY PRN ALLERGIES 10/02/24 10/16/24 metoprolol succinate 25 mg 25 mg PO DAILY 10/16/24 10/16/24 tablet,extended release 24 hr Previous Rx's ?Medication ?Instructions ?Recorded nitroglycerin 0.3 mg sublingual 0.3 mg sublingual Q5M PRN chest 09/06/23 tablet pain #10 tabs hydroxychloroquine 200 mg tablet 200 mg PO BID #180 tabs 05/15/24 amlodipine 5 mg tablet (Norvasc) 5 mg PO .qhs #90 tabs 06/25/24 gabapentin 300 mg capsule 300 mg PO .qhs #90 caps 07/23/24 hydroxyzine HCl 25 mg tablet 25 mg PO BID PRN amxiety #180 tabs 08/07/24 Allergies Allergy/AdvReac Type Severity Reaction Status Date / Time adalimumab (From Humira) AdvReac Intermediate licha Verified 10/16/24 10:19 infections methotrexate AdvReac Intermediate nausea, Verified 10/16/24 10:19 fatigue, bones aching Xjpytho-KFT-DiQ Reductase AdvReac ADR-Muscle Verified 10/16/24 10:19 Inhibitor (Dtelsly-Ptq-Rzf Pain Reductase Inhibitor) zonisamide (From Zonegran) AdvReac ADR-Nausea Verified 10/16/24 10:19 Review of Systems Const: Denies: fever(s) or chills Card: Reports: chest pain and dyspnea on exertion Resp: Denies: dyspnea GI: Denies: abdominal pain : Denies: dysuria, urinary frequency or urinary urgency Musc: Denies: neck pain or back pain Skin/Breast: Denies: rash PFSH ED PFSH: Medical History (Updated 10/16/24 @ 14:47 by Christopher Olsen DO) Burning mouth syndrome PVC (premature ventricular contraction) Seborrheic keratosis GERD (gastroesophageal reflux disease) Raynauds disease Candidiasis of mouth and esophagus resolved COVID-19 Chronic ulcerative stomatitis Environmental and seasonal allergies Anemia High risk medication use steroids for flares, RA treatment Seronegative rheumatoid arthritis of both hands Neuropathy Asthma Diabetes Hypertension Fibromyalgia Surgical History (Updated 10/16/24 @ 14:24 by Josi Chester MD) History of open reduction and internal fixation (ORIF) procedure left trimalleolar fracture in 200, with hardware removal in 2014, recommended for fusion consideration in 2020, opted for non-invasive management History of fusion of cervical spine 2010 History of hysterectomy History of appendectomy H/O right knee surgery History of shoulder surgery right Family History Other CAD (coronary artery disease) Chronic kidney disease (CKD) Diabetes Hyperlipidemia Hypertension Lung disease Rheumatoid arthritis Stroke Denies family history of Clotting disorder Dementia Systemic lupus erythematosus (SLE) in adult Anesthesia complication Bleeding disorder Cancer Social History Smoking and tobacco/nicotine status: never used tobacco/nicotine Alcohol intake: current Alcohol intake frequency: holidays/special occasions only Substance/Drug Use: never Adopted: No Caregiver/support person: No Lives independently: Yes Household members: none Marital status: service: No Current occupational status: retired and disabled Current gender identity: Female Special angelito needs: No Agree to transfusion: Yes Physical Exam Const: GENERAL APPEARANCE: cooperative ORIENTATION/CONSCIOUSNESS: Yes awake, Yes oriented to person, Yes oriented to place and Yes oriented to time HENMT: COMMON NORMALS: normocephalic, atraumatic and hearing grossly normal bilaterally HEAD & SCALP: normocephalic and atraumatic Resp: COMMON NORMALS: normal respiratory effort, No retractions, No use of accessory muscles and clear to auscultation bilaterally AUSCULTATION: clear to auscultation bilaterally Cardio: COMMON NORMALS: regular rate, regular rhythm and No murmurs present (Cardio) RATE: regular rate RHYTHM: regular rhythm GI: COMMON NORMALS: Soft to palpation and No hepatosplenomegaly present AUSCULTATION: Yes normoactive bowel sounds PALPATION: Yes Soft to palpation, No Tenderness to palpation present (GI), No Guarding due to palpation present (GI) and Yes No hepatosplenomegaly present Extremity: COMMON NORMALS: normal to inspection, capillary refill normal, no clubbing, cyanosis or edema, no calf tenderness and no pedal edema Neuro: SENSORIUM/ORIENTATION: Yes oriented to person, Yes oriented to place and Yes oriented to time Skin: COMMON NORMALS: no rashes or lesions noted GENERAL SKIN EXAM: no rashes or lesions noted Course Vital Signs: Vital signs: Vital Signs Temperature 97.3 F L 10/16/24 10:05 Pulse Rate 74 10/16/24 13:47 Respiratory Rate 15 10/16/24 11:01 Blood Pressure 124/77 10/16/24 12:43 Pulse Oximetry 97 10/16/24 12:43 Oxygen Delivery Me thod Room Air 10/16/24 13:32 MDM - Chest Pain Medical Decision Making Patient has escalating angina for last week. A year ago she had a stress test that identified some jenny-infarct ischemia that was reversible. Given her current symptoms are reviewed with Dr. Mai he recommends patient be admitted anticipates angiography in the morning. Patient still has some mild chest pressure Nitropaste placed start Lovenox admit with the hospitalist discussed with hospitalist orders written. Consult cardiology. Medical Records I reviewed the patient's medical records. Lab Data I reviewed the patient's lab results. 10/16/24 10:31 10/16/24 10:31 Radiology Impressions Chest X-Ray 10/16/24 10:09 IMPRESSION: Mild cardiomegaly unchanged, otherwise negative chest. Laboratory Results WBC 7.59 10^3/uL (3.29-11.43) 10/16/24 10:31 RBC 4.44 10^6/uL (3.85-5.65) 10/16/24 10:31 Hgb 12.90 g/dL (11.27-16.99) 10/16/24 10:31 Hct 39.9 % (36-47) 10/16/24 10:31 MCV 89.9 fl (85-98) 10/16/24 10:31 MCH 29.1 pg (27-33) 10/16/24 10:31 MCHC 32.3 g/dL (30-55) 10/16/24 10:31 RDW 12.9 % (12.1-15.1) 10/16/24 10:31 Plt Count 308 10^3/cmm (157-399) 10/16/24 10:31 MPV 9.5 fL (7.4-10.4) 10/16/24 10:31 Neut % (Auto) 58.8 % 10/16/24 10:31 Lymph % (Auto) 28.7 % 10/16/24 10:31 Miller % (Auto) 8.4 % 10/16/24 10:31 Eos % (Auto) 3.2 % 10/16/24 10:31 Baso % (Auto) 0.8 % 10/16/24 10: Neut # (Auto) 4.46 10^3/uL (1.8-7.7) 10/16/24 10:31 Lymph # (Auto) 2.2 10^3/uL (0.8-4.8) 10/16/24 10:31 Miller # (Auto) 0.6 10^3/uL (0.2-0.9) 10/16/24 10:31 Eos # (Auto) 0.2 10^3/uL (0.0-0.8) 10/16/24 10:31 Baso # (Auto) 0.1 10^3/uL (0.0-0.1) 10/16/24 10:31 Nucleated RBC % (auto) 0 % 10/16/24 10: Nucleated RBCs # 0.0 /100WBC 10/16/24 10:31 Sodium 140 mmol/L (136-145) 10/16/24 10:31 Potassium 4.4 mmol/L (3.5-5.1) 10/16/24 10:31 Chloride 105 mmol/L (98-107) 10/16/24 10:31 Carbon Dioxide 25 mmol/L (22-29) 10/16/24 10:31 Anion Gap 14.4 (5-19) 10/16/24 10:31 BUN 13 mg/dL (8-23) 10/16/24 10:31 Creatinine 0.9 mg/dL (0.5-0.9) 10/16/24 10:31 GFR Calculation 62.1 mL/min (90-130) L 10/16/24 10:31 Glucose 79 mg/dL (65-115) 10/16/24 10:31 Calculated Osmolality 289 mOsm/kg (285-295) 10/16/24 10:31 Calcium 9.0 mg/dL (8.5-10.5) 10/16/24 10:31 Total Bilirubin 0.5 mg/dL (0.15-1.2) 10/16/24 10:31 AST 18 U/L (0-32) 10/16/24 10:31 ALT 18 U/L (0-33) 10/16/24 10:31 Alkaline Phosphatase 97 U/L (35-105) 10/16/24 10:31 Troponin T Baseline 45 ng/L (0-10) H 10/16/24 10:31 Total Protein 6.3 g/dL (6.6-8.7) L 10/16/24 10:31 Albumin 4.1 g/dL (3.5-5.2) 10/16/24 10:31 Globulin 2.2 g/dL (1.3-4.6) 10/16/24 10:31 All radiology interpretation(s) finalized by discharge Discharge Plan Discharge Patient Disposition: Admitted As Inpatient Admit Provider: Josi Chester Clinical Impression: Angina of effort, Diabetes Condition: Stable Coding Level of Care Code ED Bulk Station Agent for 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
[2024-10-16 10:40] LABS: Basophils # 0.1 10^3/uL (0.0-0.1); Basophils % 0.8 %; Eosinophils # 0.2 10^3/uL (0.0-0.8); Eosinophils % 3.2 %; Hematocrit 39.9 % (36-47); Lymphocytes # 2.2 10^3/uL (0.8-4.8); Lymphocytes % 28.7 %; Mean Corpuscular HGB Conc 32.3 g/dL (30-55); Mean Corpuscular Hemoglobin 29.1 pg (27-33); Mean Corpuscular Volume 89.9 fl (85-98); Mean Platelet Volume 9.5 fL (7.4-10.4); Monocytes # 0.6 10^3/uL (0.2-0.9); Monocytes % 8.4 %; Neutrophils # 4.46 10^3/uL (1.8-7.7); Neutrophils % 58.8 %; Nucleated Red Blood Cells % 0 %; Platelet Count 308 10^3/cmm (157-399); Red Blood Count 4.44 10^6/uL (3.85-5.65); Red Cell Distribution Width 12.9 % (12.1-15.1); White Blood Count 7.59 10^3/uL (3.29-11.43)
[2024-10-16 11:02] LABS: Troponin(5th) Baseline 45 ng/L (0-10)
[2024-10-16 11:03] LABS: Alanine Aminotransferase 18 U/L (0-33); Albumin Level 4.1 g/dL (3.5-5.2); Alkaline Phosphatase 97 U/L (35-105); Anion Gap 14.4 (5-19); Aspartate Amino Transferase 18 U/L (0-32); Blood Urea Nitrogen 13 mg/dL (8-23); Carbon Dioxide 25 mmol/L (22-29); Chloride 105 mmol/L (98-107); Creatinine Clr Calc Pharmacy 68.6217; Globulin 2.2 g/dL (1.3-4.6); Glomerular Filtration Rate 62.1 mL/min (90-130); Glucose 79 mg/dL (65-115); Osmolality Calculated 289 mOsm/kg (285-295); Potassium 4.4 mmol/L (3.5-5.1); Sodium 140 mmol/L (136-145); Total Bilirubin 0.5 mg/dL (0.15-1.2); Total Protein 6.3 g/dL (6.6-8.7)
[2024-10-16] MEDS: aspirin 81 mg Chew Tablet 324 MG PO (11:22)
[2024-10-16] MEDS: enoxaparin 100 mg/mL Syringe SUBCUT (12:10)
[2024-10-16] MEDS: nitroglycerin 1 gm/inch oint Pkt 1 INCH TOPICAL ×3 (12:10→20:30)
--- NOTE | 2024-10-16 12:16 | ECG_ITS ---
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
--- NOTE | 2024-10-16 13:42 | P.CONIM_ITS ---
<Statement entered by Juan Mai M.D - 10/17/24 10:59> Patient was evaluated and cared for in conjunction with an advanced practice practitioner.? I personally examined the patient and reviewed the chart and all pertinent data including imaging, telemetry, and laboratory results.? I discussed the patient in detail with the advanced practice practitioner.? Please see? their note for complete consult note, testing results and agreed upon plan of care for the patient. Patient has typical chest pain symptoms and has NSTEMI. We will proceed with coronary angiogram with possible PCI tomorrow.NPO past midnight.Continue aspirin and anticoagulation. GENERAL: Patient is alert, awake and oriented x3. HEART: Regular S1 and S2 LUNGS: Clear to auscultate bilaterally. CENTRAL NERVOUS SYSTEM: Grossly nonfocal. EXTREMITIES: Lower extremities without edema bilaterally. Providers/Reason For Consult 2 Consulting Physician/Specialty*: Dr. Mai Reason for Consult*: Chest pain Requesting Physician: Dr. Olsen Attending Physician: Josi Chester MD Primary Care Provider: Christiano Gutierrez MD History of Present Illness History of Present Illness This is a very pleasant 69-year-old female with history of diabetes, denies cholesterol issues, family history of coronary artery disease. She came into the ER today for chest pain on exertion. She states for the past 3 weeks she has had chest pain on exertion at the center of her chest that is substernal in nature radiating to her back. She states it is related to activity and relieved with rest. She denies any nausea or vomiting with this. She reports that because it has been going on for several weeks, she decided to come in. She did not take anything for her chest pain. She is not having any active chest pain at this time. She has a history of a stress test showing a medium sized area of prior infarct with minimal jenny-infarct ischemia seen in the left circumflex territory. She does have a history of bigeminy PVCs and was placed on a beta- stew recently for this. Despite this she has had continuous symptoms. EKG showing no acute ST elevation or T wave abnormality. Troponins were elevated at 44?44.80 awaiting 6-hour troponin and delta is negative at this time. She states that many years ago she had the same symptoms and had a heart cath that was negative. Review of Systems 2 Narrative: Consitutional: denies fever, chills, body aches, or changes in appetite, denies abnormal weight loss Eyes: Denies changes in vision Card: Denies chest pain, palpitations, irregular heart rhythm, edema, syncope, shortness of breath, orthopnea, leg pain with exertion Resp: Denies shortness of breath, denies hemoptysis, denies cough GI: denies abdominal pain, denies nausea or voimting, denies blood in stool : denies blood in urine, denies dysuria Musc: Denies extremity pain, denies limited range of motion or recent injury Skin: Denies rash, lesions, or wounds, denies changes to skin color Neuro: Denies nubmness in extremities, h/a, s/s of stroke Nahum: Denies easy bruiding/bleeding Medications/Allergies Home Medications ?Medication ?Instructions ?Recorded ?Confirmed ?Last Taken ?Type nitroglycerin 0.3 mg sublingual 0.3 mg sublingual Q5M PRN chest 09/06/23 10/16/24 Unknown Rx tablet pain #10 tabs hydroxychloroquine 200 mg tablet 200 mg PO BID #180 ta bs 05/15/24 10/16/24 10/16/24 Rx amlodipine 5 mg tablet (Norvasc) 5 mg PO .qhs #90 tabs 06/25/24 10/16/24 10/15/24 Rx gabapentin 300 mg capsule 300 mg PO .qhs #90 caps 01/0910/16/24 10/15/24 Rx hydroxyzine HCl 25 mg tablet 25 mg PO BID PRN amxiety #180 tabs 08/07/24 10/16/24 Unknown Rx acetaminophen 500 mg tablet 500 mg PO BID PRN OA 10/0210/16/24 Unknown History (Tylenol Extra Strength) levocetirizine 5 mg tablet 5 mg PO DAILY PRN ALLERGIES 10/02/24 10/16/24 10/16/24 History metoprolol succinate 25 mg 25 mg PO DAILY 10/16/2408/1110/16/24 History tablet,extended release 24 hr Allergies Allergy/AdvReac Type Severity Reaction Status Date / Time adalimumab (From Humira) AdvReac Intermediate licha Verified 10/16/24 10:19 infections methotrexate AdvReac Intermediate nausea, Verified 10/16/24 10:19 fatigue, bones aching Nxefgbt-HYA-BuV Reductase AdvReac ADR-Muscle Verified 10/16/24 10:19 Inhibitor (Wwvdhjg-Hlk-Nis Pain Reductase Inhibitor) zonisamide (From Zonegran) AdvReac ADR-Nausea Verified 10/16/24 10:19 PFSH Acute 2 PFSH: Medical History Chest pain Chronic ulcerative stomatitis Environmental and seasonal allergies Anemia Immunization counseling High risk medication use Seronegative rheumatoid arthritis of both hands Neuropathy Asthma Diabetes Hypertension Fibromyalgia Surgical History History of fusion of cervical spine 2010 History of hysterectomy History of appendectomy H/O right knee surgery History of shoulder surgery right Family History Other CAD (coronary artery disease) Chronic kidney disease (CKD) Diabetes Hyperlipidemia Hypertension Lung disease Rheumatoid arthritis Stroke Denies family history of Clotting disorder Dementia Systemic lupus erythematosus (SLE) in adult Anesthesia complication Bleeding disorder Cancer Social History Smoking and tobacco/nicotine status: never used tobacco/nicotine Alcohol intake: current Alcohol intake frequency: holidays/special occasions only Substance/Drug Use: never Adopted: No Caregiver/support person: No Lives independently: Yes Household members: none Marital status: service: No Current occupational status: retired and disabled Current gender identity: Female Special angelito needs: No Agree to transfusion: Yes Vitals/I&O/Wt Last Vital Signs Temp 97.3 F L 10/16/24 10:05 Pulse 86 10/16/24 13:10 Resp 15 10/16/24 11:01 BP 124/77 10/16/24 12:43 Pulse Ox 97 10/16/24 12:43 O2 Del Method Nasal Cannula 10/16/24 10:05 10/15/24 10/16/24 10/16/24 22:59 06:59 14:59 Intake Total 0 / 0 Balance 0 / 0 Weight last 48 hrs Weight 210 lb Physical Exam 2 Narrative: General: No apparent distress, healthy appearing, well nourished HENMT: normoceophalic Neck: No carotid bruit bilaterally Muskuloskeletal: Full ROM Lymphatic: no lymphedema noted Respiratory: Normal respiratory effort, clear to auscultation bilaterally throughout all lung [place], no use of accessory muscles Cardio: No JVD, regular rate, regular rhythm, S1 S2 normal, no murmurs, peripheral pulses 2+ radial palpated bilaterally GI: Normal to inspection, nondistended Extremities: Full ROM, normal, normal capillary refill, no cyanosis or edema Neuro: Alert and oriented x4, no focal motor deficits Psych: Affect normal, denies suicidal ideation, mental status grossly normal Skin: No rashes or lesions noted, no wounds Data 10/16/24 10:31 10/16/24 10:31 A&P Assessment and plan (1) Hypertension: Qualifiers: Hypertension type: essential hypertension Qualified Code(s): I10 - Essential (primary) hypertension (2) PVC (premature ventricular contraction): (3) Dyspnea on exertion: (4) Chest pain: Qualifiers: Chest pain type: chest pain on breathing Qualified Code(s): R07.1 - Chest pain on breathing (5) Bigeminal rhythm: Plan Patient is having typical signs and symptoms of acute coronary syndrome along with elevated troponin. At this time we recommend that patient proceed with left heart cath possible PCI. Patient has been educated on the risks and benefits of this and agrees. The plan is to take her for this procedure tomorrow morning. Agree with Lovenox, aspirin, and nitro. Thank you for allowing us to take care of this very pleasant 69-year-old female PDMP PDMP Reviewed: Not Reviewed Consult Attestations 2 Medical Necessity Statement: Deferred to primary. Coding Level of Care Code Acute Code for [facility] Fwd Diagnoses Essential hypertension I10 Hypertension type: essential hypertension PVC (premature ventricular contraction) I49.3 Dyspnea on exertion R06.00 Chest pain on breathing R07.1 Chest pain type: chest pain on breathing Bigeminal rhythm I49.8
--- NOTE | 2024-10-16 13:46 | P.HP_ITS ---
Providers/Chief Complaint 2 Admitting Physician: Josi Chester MD Primary Care Provider: Christiano Gutierrez MD Chief Complaint: chest pain History of Present Illness Leydi Piper is a 69 year old female with a several-day history of burning chest pressure that radiates to the back and, more recently, to both shoulders. The pain is clearly exertional ? it intensifies when climbing stairs and takes roughly 20 minutes to resolve when the activity stops. Some shortness of breath also noted, but the pain, rated 7/10 at worst is primary concern. Although the patient has experienced intermittent heart pain over the past decades, this episode is different in its persistent, progressively worsening pattern. Not like reflux. Not like arthritis pain from her seronegative rheumatoid arthritis. She has had previous cardiac stress testing in September 2023 performed due to palpitations and PVCs/bigeminy. A medium sized area of prior infarction with minimal jenny-infarct ischemia was seen in the left circumflex artery territory. No EKG changes with Lexiscan infusion. She has had some degree of this discomfort building over several weeks to months along with recent nocturnal heart fluttering. Dr. Isaacs changed her metoprolol to extended release formulation due to this last month. EKG in the emergency room did not show any acute ST segment changes. Initial troponin however was in the 40s. Previously has had normal baseline troponins. Risk factors for coronary artery disease include diabetes mellitus and hypertension. There is a family history as well. Does not report a history of hyperlipidemia but is intolerant of statin therapy with significant muscle pain. Case was discussed with cardiology and recommendation was for admission and further workup and management. Review of Systems 2 General: Reports: Other (ROS as per HPI or as otherwise noted here) Const: Denies: fever(s) Card: Reports: chest pain, palpitations, swelling of feet/ankles and dyspnea on exertion; Denies: lightheadedness or orthopnea Resp: Denies: productive cough or pain on inspiration GI: Reports: other (tolerating ozempic better from GI standpoint); Denies: change in bowel habits or hematochezia : Denies: difficulty voiding or hematuria Musc: Reports: joint pain (baseline, last prednisone about a month ago) Neuro: Reports: headache(s) (nitro); Denies: weakness in extremities or frequent falls Nahum/Lymph: Denies: easy bruising or easy bleeding Medications/Allergies Home Medications ?Medication ?Instructions ?Recorded ?Confirmed ?Last Taken ?Type nitroglycerin 0.3 mg sublingual 0.3 mg sublingual Q5M PRN chest 09/06/23 10/16/24 Unknown Rx tablet pain #10 tabs hydroxychloroquine 200 mg tablet 200 mg PO BID #180 ta bs 05/15/24 10/16/24 10/16/24 Rx amlodipine 5 mg tablet (Norvasc) 5 mg PO .qhs #90 tabs 06/25/24 10/16/24 10/15/24 Rx gabapentin 300 mg capsule 300 mg PO .qhs #90 caps 01/0910/16/24 10/15/24 Rx hydroxyzine HCl 25 mg tablet 25 mg PO BID PRN amxiety #180 tabs 08/07/24 10/16/24 Unknown Rx acetaminophen 500 mg tablet 500 mg PO BID PRN OA 10/0210/16/24 Unknown History (Tylenol Extra Strength) levocetirizine 5 mg tablet 5 mg PO DAILY PRN ALLERGIES 10/02/24 10/16/24 10/16/24 History aspirin 81 mg tablet,delayed 81 mg PO DAILY 10/16/24 0 10/16/24 10/16/24 History release blood-glucose sensor (FreeStyle 10/16/24 10/16/24 Unk nown History Kartik 3 Sensor device) cholecalciferol (vitamin D3) 10 10 mcg PO DAILY low le vels 10/16/24 10/16/24 10/16/24 History mcg (400 unit) tablet (Vitamin D3) metoprolol succinate 25 mg 25 mg PO DAILY 10/16/2408/1110/16/24 History tablet,extended release 24 hr multivitamin 1 tab PO DAILY 10/16/24 04/0 08/1110/16/24 History prednisone 20 mg tablet 40 mg PO DAILY PRN RA flare, 5 10/16/24 10/16/24 09/15/24 History days at a time semaglutide 2 mg/dose (8 mg/3 mL) 2 mg SUBCUT Q7D diab etes 10/16/24 10/16/24 10/14/24 History subcutaneous pen injector (Ozempic) Allergies Allergy/AdvReac Type Severity Reaction Status Date / Time adalimumab (From Humira) AdvReac Intermediate licha Verified 10/16/24 10:19 infections methotrexate AdvReac Intermediate nausea, Verified 10/16/24 10:19 fatigue, bones aching Yjkerkb-WTP-SgO Reductase AdvReac ADR-Muscle Verified 10/16/24 10:19 Inhibitor (Kzwvame-Vdh-Mky Pain Reductase Inhibitor) zonisamide (From Zonegran) AdvReac ADR-Nausea Verified 10/16/24 10:19 PFSH Acute 2 PFSH: Medical History (Updated 10/16/24 @ 16:22 by Josi Chester MD) Chronic kidney disease, stage 2 (mild) Burning mouth syndrome PVC (premature ventricular contraction) Seborrheic keratosis GERD (gastroesophageal reflux disease) Raynauds disease Candidiasis of mouth and esophagus resolved COVID-19 Chronic ulcerative stomatitis Environmental and seasonal allergies Anemia High risk medication use steroids for flares, RA treatment Seronegative rheumatoid arthritis of both hands Neuropathy Asthma Diabetes Hypertension Fibromyalgia Surgical History (Updated 10/16/24 @ 14:24 by Josi Chester MD) History of open reduction and internal fixation (ORIF) procedure left trimalleolar fracture in 200, with hardware removal in 2014, recommended for fusion consideration in 2020, opted for non-invasive management History of fusion of cervical spine 2010 History of hysterectomy History of appendectomy H/O right knee surgery History of shoulder surgery right Family History Other CAD (coronary artery disease) Chronic kidney disease (CKD) Diabetes Hyperlipidemia Hypertension Lung disease Rheumatoid arthritis Stroke Denies family history of Clotting disorder Dementia Systemic lupus erythematosus (SLE) in adult Anesthesia complication Bleeding disorder Cancer Social History Smoking and tobacco/nicotine status: never used tobacco/nicotine Alcohol intake: current Alcohol intake frequency: holidays/special occasions only Substance/Drug Use: never Adopted: No Caregiver/support person: No Lives independently: Yes Household members: none Marital status: service: No Current occupational status: retired and disabled Current gender identity: Female Special angelito needs: No Agree to transfusion: Yes Vitals/I&O/Wt Last Vital Signs Temp 97.3 F L 10/16/24 10:05 Pulse 86 10/16/24 13:10 Resp 15 10/16/24 11:01 BP 124/77 10/16/24 12:43 Pulse Ox 97 10/16/24 12:43 O2 Del Method Room Air 10/16/24 13:32 10/15/24 10/16/24 10/16/24 22:59 06:59 14:59 Intake Total 0 / 0 Balance 0 / 0 Weight last 48 hrs Weight 95.254 kg Physical Exam 2 Narrative: Patient is awake and alert. Able to provide history. Normocephalic, extraocular movements are intact, mucous membranes moist. Lungs are clear to auscultation bilaterally without any rales rhonchi or wheezes. Cardiovascular exam reveals a regular rhythm. No murmurs. Abdomen is soft, nontender with positive bowel sounds. Extremities trace edema at the ankles. Speech is clear, face symmetric. Data 10/16/24 10:31 10/16/24 10:31 Other Labs: Radiology Impressions Chest X-Ray 10/16/24 10:09 IMPRESSION: Mild cardiomegaly unchanged, otherwise negative chest. Laboratory Results WBC 7.59 10^3/uL (3.29-11.43) 10/16/24 10:31 RBC 4.44 10^6/uL (3.85-5.65) 10/16/24 10:31 Hgb 12.90 g/dL (11.27-16.99) 10/16/24 10:31 Hct 39.9 % (36-47) 10/16/24 10:31 MCV 89.9 fl (85-98) 10/16/24 10:31 MCH 29.1 pg (27-33) 10/16/24 10:31 MCHC 32.3 g/dL (30-55) 10/16/24 10:31 RDW 12.9 % (12.1-15.1) 10/16/24 10:31 Plt Count 308 10^3/cmm (157-399) 10/16/24 10:31 MPV 9.5 fL (7.4-10.4) 10/16/24 10:31 Neut % (Auto) 58.8 % 10/16/24 10:31 Lymph % (Auto) 28.7 % 10/16/24 10:31 Titus % (Auto) 8.4 % 10/16/24 10:31 Eos % (Auto) 3.2 % 10/16/24 10:31 Baso % (Auto) 0.8 % 10/16/24 10:31 Neut # (Auto) 4.46 10^3/uL (1.8-7.7) 10/16/24 10:31 Lymph # (Auto) 2.2 10^3/uL (0.8-4.8) 10/16/24 10:31 Titus # (Auto) 0.6 10^3/uL (0.2-0.9) 10/16/24 10:31 Eos # (Auto) 0.2 10^3/uL (0.0-0.8) 10/16/24 10:31 Baso # (Auto) 0.1 10^3/uL (0.0-0.1) 10/16/24 10:31 Nucleated RBC % (auto) 0 % 10/16/24 10:31 Nucleated RBCs # 0.0 /100WBC 10/16/24 10:31 Sodium 140 mmol/L (136-145) 10/16/24 10:31 Potassium 4.4 mmol/L (3.5-5.1) 10/16/24 10:31 Chloride 105 mmol/L (98-107) 10/16/24 10:31 Carbon Dioxide 25 mmol/L (22-29) 10/16/24 10:31 Anion Gap 14.4 (5-19) 10/16/24 10:31 BUN 13 mg/dL (8-23) 10/16/24 10:31 Creatinine 0.9 mg/dL (0.5-0.9) 10/16/24 10:31 GFR Calculation 62.1 mL/min (90-130) L 10/16/24 10:31 Glucose 79 mg/dL (65-115) 10/16/24 10:31 Calculated Osmolality 289 mOsm/kg (285-295) 10/16/24 10:31 Calcium 9.0 mg/dL (8.5-10.5) 10/16/24 10:31 Total Bilirubin 0.5 mg/dL (0.15-1.2) 10/16/24 10:31 AST 18 U/L (0-32) 10/16/24 10:31 ALT 18 U/L (0-33) 10/16/24 10:31 Alkaline Phosphatase 97 U/L (35-105) 10/16/24 10:31 Troponin T Baseline 45 ng/L (0-10) H 10/16/24 10:31 Troponin T 120 Minute 44.80 ng/L (0-10) H 10/16/24 12:26 Delta Troponin T -0.20 ABS# (0-10) L 10/16/24 12:26 Total Protein 6.3 g/dL (6.6-8.7) L 10/16/24 10:31 Albumin 4.1 g/dL (3.5-5.2) 10/16/24 10:31 Globulin 2.2 g/dL (1.3-4.6) 10/16/24 10:31 STRESS TEST 09/2023 IMPRESSIONS 1. Medium sized area of prior infarct with minimal jenny-infarct ischemia seen in the left circumflex artery territory. 2 LV systolic function is normal Conclusion: 1. Normal EKG response to Lexiscan infusion 2. No Lexiscan induced chest pain or cardiac arrhythmia. 3. Normal blood pressure and heart rate response. 4. Sestamibi/sestamibi perfusion scan pending; see separate report. A&P Assessment and plan (1) Unstable angina: As evidenced by progressively worsening dyspnea on exertion. Baseline elevation in troponin this time compared to prior visit suggestive of non-ST elevation RI and likely underlying coronary artery disease which would be a do not gnosis. His family history as well as risk factors including hypertension and diabetes. -Cardiology consultation -Current plan is for cardiac catheterization in the morning -Echocardiogram -Add aspirin -Continue home beta-blockade -Treatment dose Lovenox for now -Continue Nitropaste, sublingual nitroglycerin -Has history of adverse drug reaction to statin therapy in the form of muscle pain; reviewed with her and if abnormalities found on cardiac testing, she will consider a trial of low dose, newer statin given potential benefits on treatment on prognosis and future events -Check lipid panel and CK level (2) Hypertension: Chronically on amlodipine and also metoprolol. Has a history of PVCs. Blood pressures currently within acceptable range. -Continue home beta-blockade -Currently holding amlodipine with addition of nitroglycerin -Monitor blood pressures and heart rate Qualifiers: Hypertension type: primary hypertension Qualified Code(s): I10 - Essential (primary) hypertension (3) Diabetes: Currently on semaglutide weekly, last dose on tuesday. Uses [employer] continuous monitor. Normal blood sugar on presentation. -Consistent carbohydrate diet -Check hemoglobin A1c -Declines finger sticks and insulin after engaged discussion and review of recent blood sugars via her monitor - Will check am blood sugar daily and compare to her CGM -Continue home gabapentin Qualifiers: Diabetes mellitus type: type 2 Diabetes mellitus alf insulin use: without long term care social worker use Diabetes mellitus complication status: with neurologic complications Diabetes mellitus complication detail: with polyneuropathy Q ualified Code(s): E11.42 - Type 2 diabetes mellitus with diabetic polyneuropathy (4) Seronegative rheumatoid arthritis of both hands: Follows with Dr. Hurtado, chronically on hydroxychloroquine. Has been on prednisone for flares in the past. Takes Tylenol for pain. -Continue home hydroxychloroquine -Aware of intermittent steroid use for flares, last 5 day course about a month ago (5) Moderate major depression: Chronically takes hydroxyzine as needed for associated anxiety -Continue hydroxyzine but at 3 times a day dosing as needed given planned cath and presentation (6) Seasonal allergies: Chronically takes levocetirizine for allergies -Will provide cetirizine while here if needed (7) Chronic kidney disease, stage 2 (mild): Not a known diagnosis but eGFR consistently 60s-70s on review of data. Risks include hypertension and diabetes - Hydrate with planned cath and monitor renal function post procedure (8) Body mass index (BMI) of greater than 35 to 39.9 with comorbidity: Plan Inpatient admission VTE prophylaxis: Lovenox at treatment dose currently, scds Antibiotics: none Pending studies: echo, a1c, lipid panel, ck, uric acid, cath planned for am along with morning labs Telemetry: ordered for cardiac presentation and history of PVCs Klein: not currently indicated Line(s): peripheral IVs Disposition plan: Home with outpatient follow up to cardioloyg and PCP anticipated Code Status: Full Code Supportive care otherwise Findings, concerns and plans were discussed with patient and they were given an opportunity to ask questions PDMP PDMP Reviewed: Last Reviewed 10/16/24 16:35 by Josi Chester MD Attestations 2 Medical Necessity Statement*: Anticipated stay greater than two midnights in this patient with unstable angina and elevated baseline troponin. She has previously had normal values. She has risk factors for coronary artery disease as noted and described above. She has experienced some relief with management initiated thus far so anticipate likely need for intervention. Diagnoses Unstable angina I20.0 Primary hypertension I10 Hypertension type: primary hypertension Type 2 diabetes mellitus with diabetic polyneuropathy, without long-term current use of insulin E11.42 Diabetes mellitus type: type 2 Diabetes mellitus alf insulin use: without long term care social worker use Diabetes mellitus complication status: with neurologic complications Diabetes mellitus complication detail: with polyneuropathy Seronegative rheumatoid arthritis of both hands M06.041; M06.042 Moderate major depression F32.1 Seasonal allergies J30.2 Chronic kidney disease, stage 2 (mild) N18.2 Body mass index (BMI) of greater than 35 to 39.9 with comorbidity
--- NOTE | 2024-10-16 14:39 | USCV_ITS ---
Leydi Piper Age: 69 Gender: F : 1955 Exam Date: 10/16/2024 16:35 Ordering Phys: Josi Chester MD Technologist: KRISTA Exam Location: [facility] [place] Indication: Unstable Angina BP: 109 / 54 HR: 61 Rhythm: Sinus Technical Quality: Adequate MEASUREMENTS (Male / Female) Normal Values 2D ECHO LV Diastolic Diameter PLAX 3.9 cm 4.2 - 5.9 / 3.9 - 5.3 cm IVS Diastolic Thickness 0.9 cm 0.6 - 1.0 / 0.6 - 0.9 cm IVS Systolic Thickness 1.6 cm LVPW Diastolic Thickness 0.9 cm 0.6 - 1.0 / 0.6 - 0.9 cm LVPW Systolic Thickness 1.5 cm LVOT Diameter 2.1 cm LV Ejection Fraction 2D Teich 52.8 % LV Ejection Fraction MOD 4C 67.1 % LV Ejection Fraction MOD 2C 75.9 % LV Ejection Fraction 2C AL 77.1 % LA Diameter 3.4 cm RA Systolic Volume 4C AL 22.9 ml RA Systolic Volume 4C MOD 21.4 ml LA Sys Volume AL 32.2 cm cubed LA Sys Volume Index AL 14.8 cm cubed/m squared Aorta at Sinotubular Diameter 2.1 cm M-MODE LA Ao Ratio MM 1.5 AV Cusp Separation MM 1.5 cm DOPPLER AV Peak Velocity 95.0 cm/s LVOT Peak Velocity 64.0 cm/s AV Area Cont Eq vti 2.0 cm squared AV Area Cont Eq pk 2.3 cm squared MV Area PHT 3.6 cm squared Mitral E to A Ratio 0.6 TR Peak Velocity 59.0 cm/s TR Peak Gradient 1.4 mmHg TV Peak E Velocity 63.0 cm/s PV Peak Velocity 66.0 cm/s FINDINGS Left Ventricle Technically limited quality echocardiogram because of poor ultrasonic windows. LV systolic function is grossly normal. Grade 1 diastolic dysfunction Right Ventricle Grossly normal Right Atrium Normal in size Left Atrium Normal in size Mitral Valve Structurally normal mitral valve. Mild mitral regurgitation. Aortic Valve Grossly normal. No significant stenosis or regurgitation. Tricuspid Valve Insufficient TR jet to calculate RVSP Pulmonic Valve Not well visualized Pericardium Grossly normal Aorta Normal in size IVC Not visualized CONCLUSIONS Technically limited quality echocardiogram because of poor ultrasonic windows. LV systolic function is grossly normal. Grade 1 diastolic dysfunction Mild mitral regurgitation Juan Mai MD (Electronically Signed) Final Date: 16 October 2024 22:51 S
--- NOTE | 2024-10-16 16:09 | ECG_ITS ---
[facility]16 Pat Name: Leydi Piper Department: Room: 102 Gender: Female Radio Survey Worker: : 1955 Requested By: Bev Puentes Order Number: [id number] Reading MD: TRI BERMUDEZ Measurements Intervals [place] Rate: 70 P: 9 PA: 160 QRS: 16 QRSD: 82 T: 45 QT: 397 QTc: 429 Interpretive Statements SINUS RHYTHM LOW QRS VOLTAGE IN PRECORDIAL LEADS [QRS DEFLECTION < 1.0 mV IN CHEST LEADS] NONSPECIFIC T-WAVE ABNORMALITY Compared to ECG 10/16/2024 12:16:07 T-wave abnormality now present Electronically Signed On 10-21-2024 21:52:49 CDT by TRI BERMUDEZ [email or web address]
[2024-10-16 16:42] LABS: Troponin 5 6HR 47.32 ng/L (0-10); Troponin 5 6HR Delta 2.32 ng/L (0-12)
[2024-10-16] MEDS: acetaminophen 500 mg Tablet PO (17:29)
[2024-10-16] MEDS: hydroxychloroquine 200 mg Tablet PO (17:29)
[2024-10-16] MEDS: docusate sodium 100 mg Capsule PO (17:30)
[2024-10-16] MEDS: gabapentin 300 mg Capsule PO (20:30)
[2024-10-17] MEDS: nitroglycerin 1 gm/inch oint Pkt 1 INCH TOPICAL (03:14)
[2024-10-17 04:00] VITALS: BP 97/57; PULSE 82; RESP 16; TEMP 36.8; O2SAT 96
[2024-10-17 04:11] LABS: Basophils # 0.1 10^3/uL (0.0-0.1); Basophils % 0.9 %; Eosinophils # 0.2 10^3/uL (0.0-0.8); Eosinophils % 3.3 %; Hematocrit 35.6 % (36-47); Lymphocytes # 2.2 10^3/uL (0.8-4.8); Lymphocytes % 32.3 %; Mean Corpuscular HGB Conc 33.1 g/dL (30-55); Mean Corpuscular Hemoglobin 29.9 pg (27-33); Mean Corpuscular Volume 90.4 fl (85-98); Mean Platelet Volume 9.6 fL (7.4-10.4); Monocytes # 0.6 10^3/uL (0.2-0.9); Monocytes % 8.1 %; Neutrophils # 3.82 10^3/uL (1.8-7.7); Neutrophils % 55.1 %; Nucleated Red Blood Cells % 0 %; Platelet Count 274 10^3/cmm (157-399); Red Blood Count 3.94 10^6/uL (3.85-5.65); White Blood Count 6.93 10^3/uL (3.29-11.43)
[2024-10-17 04:36] LABS: Anion Gap 12.9 (5-19); Blood Urea Nitrogen 14 mg/dL (8-23); Calcium 8.7 mg/dL (8.5-10.5); Carbon Dioxide 26 mmol/L (22-29); Chloride 106 mmol/L (98-107); Chol HDL Ratio 2.71 mg/dL (0.0-4.40); Cholesterol 149 mg/dL (0-200); Creatine Phosphokinase 79 U/L (26-192); Creatinine Clr Calc Pharmacy 78.5598; Glomerular Filtration Rate 71.1 mL/min (90-130); Glucose 126 mg/dL (65-115); HDL Cholesterol 55 mg/dL (60-100); LDL Cholesterol Calculated 74 mg/dL (50-129); LDL HDL Ratio 1.35 RATIO (0.00-3.22); Osmolality Calculated 294 mOsm/kg (285-295); Potassium 3.9 mmol/L (3.5-5.1); Sodium 141 mmol/L (136-145); Triglycerides 102 mg/dL (0-150); Uric Acid 6.4 mg/dL (2.4-5.7)
[2024-10-17 04:37] LABS: Magnesium 1.9 mg/dL (1.7-2.3); Phosphorus 3.6 mg/dL (2.5-4.5)
[2024-10-17 04:44] LABS: Estmated Average Glucose 143; Hemoglobin A1C 6.6 % (4.0-6.0)
[2024-10-17] MEDS: aspirin 325 mg Tablet PO (06:12)
[2024-10-17] MEDS: diphenhydrAMINE 50 mg Capsule PO (06:12)
[2024-10-17] MEDS: sodium chloride 0.9% 1,000 ML 50 ML IV (06:12)
[2024-10-17 07:25] VITALS: BP 132/71; PULSE 73; RESP 19; TEMP 36.8; O2SAT 98
--- NOTE | 2024-10-17 08:52 | W.PM.OPSUD ---
Surgery/Procedure H&P Update DATE OF PROCEDURE: October 17, 2024 DATE H&P PERFORMED: 10/17/24 H&P UPDATE INFORMATION: I have reviewed H&P completed within last 30 days, I have examined patient prior to procedure and No changes to prior documentation PREOP DIAGNOSIS: NSTEMI PRIMARY INDICATION FOR PROCEDURE: NSTEMI PLANNED PROCEDURE: Left heart cath with possible percutaneous coronary intervention PATIENT REASSESSED PRIOR TO SEDATION, WITH NO CHANGE NOTED: Yes PHYSICAL EXAM: alert, oriented x 3, clear to auscultation bilaterally and regular rate & rhythm AIRWAY EVAL/ANESTHESIA PLAN: normal airway, ASA III, Local Anesthesia, Risks, benefits & alternatives of sedation and/or procedure discussed and Patient agrees to continue as planned ADDITIONAL INFORMATION: Moderate sedation
--- NOTE | 2024-10-17 09:08 | PC.NURSE ---
mineral ore processing labourer came to get patient at 0830.
--- NOTE | 2024-10-17 09:39 | P.PCN_ITS ---
Procedure Note: Date of procedure: 10/17/24 Pre-procedure diagnosis: NSTEMI Post-procedure diagnosis: other (Critical distal RCA stenosis s/p PCI with 1 stent. ) Procedure: Left main artery is patent. Left circumflex artery is patent. Distal RCA has critical 99% stenosis status post successful revascularization with 1 stent. LAD is totally occluded in the distal segment. Gives off 3 diagonal arteries. First diagonal artery has significant 70 to 80% stenosis. At this time we will medically manage it. Dual antiplatelet therapy with aspirin and Plavix. High intensity statin therapy Estimated blood loss (mL): 10 Complications: None Condition: stable Disposition: floor Coding Level of Care Code Acute Code for [facility] Fwd
--- NOTE | 2024-10-17 09:47 | PC.NURSE ---
Patient returned to unit from labor relations or personnel negotiator at 0948 with a right radial TR-Band. NS at 100ml/hr x 12 hours.
[2024-10-17] MEDS: cetirizine 10 mg Tablet PO (09:54)
[2024-10-17] MEDS: hydroxychloroquine 200 mg Tablet PO ×2 (09:54→17:19)
[2024-10-17] MEDS: metoprolol succinate ER (24 HR) 25 mg Tablet PO (09:54)
[2024-10-17 10:17] VITALS: BP 114/68; PULSE 66; RESP 13; O2SAT 98
[2024-10-17] MEDS: sodium chloride 0.9% 1,000 ML 100 ML IV (11:01)
[2024-10-17 11:05] VITALS: BP 106/63; PULSE 67; RESP 13; TEMP 36.5; O2SAT 97
--- NOTE | 2024-10-17 12:21 | PC.NURSE ---
SHARRON Pablo from cardiology is notified that patient received 10,000 of heparin in quality control lab tech this morning so she okay'ed to hold the enoxaparin 100mg at noon.
--- NOTE | 2024-10-17 15:11 | P.PN_ITS ---
Subjective 2 Subjective: Patient was seen this morning, she is seen after coronary angiogram, no chest pain, after procedure, she is status post PCI with 1 stent, Vitals/I&O/Wt Last Vital Signs Temp 97.7 F 10/17/24 11:05 Pulse 67 10/17/24 11:05 Resp 13 10/17/24 11:05 BP 106/63 10/17/24 11:05 Pulse Ox 97 10/17/24 11:05 O2 Del Method Room Air 10/17/24 07:25 10/17/24 10/17/24 10/17/24 06:59 14:59 22:59 Intake Total 100 / 670 240 / 240 Balance 100 / 667 240 / 240 Weight last 48 hrs Weight 97.2 kg Weight 98.5 kg Weight 95.254 kg Physical Exam 2 Const: COMMON NORMALS: no acute distress and patient oriented x3 Neck/C-Spine: COMMON NORMALS: no JVD Resp: COMMON NORMALS: normal respiratory effort, No retractions, No use of accessory muscles and clear to auscultation bilaterally AUSCULTATION: clear to auscultation bilaterally Cardio: COMMON NORMALS: no JVD, regular rate, regular rhythm, S1 normal heart sound present and S2 normal heart sound present RATE: regular rate RHYTHM: regular rhythm HEART SOUNDS: S1 normal heart sound present and S2 normal heart sound present GI: COMMON NORMALS: Normal to inspection, nondistended, normoactive bowel sounds present and non-tender Extremity: COMMON NORMALS: no pedal edema Neuro: COMMON NORMALS: patient oriented x3 Psych: COMMON NORMALS: mental status grossly normal Data 10/17/24 03:39 10/17/24 03:39 A&P Assessment and plan (1) Unstable angina: -Status post coronary angiogram, status post 1 stent to RCA -Continue aspirin, Plavix, beta-stew -Statin allergy (2) Hypertension: Qualifiers: Hypertension type: primary hypertension Qualified Code(s): I10 - Essential (primary) hypertension (3) Diabetes: Currently on semaglutide weekly, last dose on tuesday. Uses [employer] continuous monitor. Normal blood sugar on presentation. -Consistent carbohydrate diet -Check hemoglobin A1c 6.6 -Declines finger sticks and insulin after engaged discussion and review of recent blood sugars via her monitor - Will check am blood sugar daily and compare to her CGM -Continue home gabapentin Qualifiers: Diabetes mellitus type: type 2 Diabetes mellitus retirement insulin use: without plant electrical engineer use Diabetes mellitus complication status: with neurologic complications Diabetes mellitus complication detail: with polyneuropathy Q ualified Code(s): E11.42 - Type 2 diabetes mellitus with diabetic polyneuropathy (4) Seronegative rheumatoid arthritis of both hands: Follows with Dr. Hurtado, chronically on hydroxychloroquine. Has been on prednisone for flares in the past. Takes Tylenol for pain. -Continue home hydroxychloroquine -Aware of intermittent steroid use for flares, last 5 day course about a month ago (5) Moderate major depression: Chronically takes hydroxyzine as needed for associated anxiety -Continue hydroxyzine but at 3 times a day dosing as needed given planned cath and presentation (6) Seasonal allergies: Chronically takes levocetirizine for allergies -Will provide cetirizine while here if needed (7) Chronic kidney disease, stage 2 (mild): Not a known diagnosis but eGFR consistently 60s-70s on review of data. Risks include hypertension and diabetes - Hydrate with planned cath and monitor renal function post procedure (8) Body mass index (BMI) of greater than 35 to 39.9 with comorbidity: Plan Inpatient admission VTE prophylaxis: Lovenox at treatment dose currently, scds Antibiotics: none Pending studies: echo, a1c, lipid panel, ck, uric acid, cath planned for am along with morning labs Telemetry: ordered for cardiac presentation and history of PVCs Klein: not currently indicated Line(s): peripheral IVs Disposition plan: Home with outpatient follow up to cardioloyg and PCP anticipated Code Status: Full Code Supportive care otherwise Findings, concerns and plans were discussed with patient and they were given an opportunity to ask questions PDMP PDMP Reviewed: Not Reviewed Attestations 2 Medical Necessity Statement*: Patient requires hospitalization for CAD status post stenting Diagnoses Unstable angina I20.0 Primary hypertension I10 Hypertension type: primary hypertension Type 2 diabetes mellitus with diabetic polyneuropathy, without long-term current use of insulin E11.42 Diabetes mellitus type: type 2 Diabetes mellitus retirement insulin use: without plant electrical engineer use Diabetes mellitus complication status: with neurologic complications Diabetes mellitus complication detail: with polyneuropathy Seronegative rheumatoid arthritis of both hands M06.041; M06.042 Moderate major depression F32.1 Seasonal allergies J30.2 Chronic kidney disease, stage 2 (mild) N18.2 Body mass index (BMI) of greater than 35 to 39.9 with comorbidity
[2024-10-17 16:00] VITALS: BP 125/74; PULSE 75; RESP 20; TEMP 36.9; O2SAT 100
--- NOTE | 2024-10-17 16:04 | PC.NURSE ---
Patient right radial TR-Bands air is removed slowly at 2ml's at a time. A 2x2 and tegaderm is placed. No hematoma is noted. Patient tolerated well. Patient is reeducated that she is not to use her right hand/wrist for the next 24 hours. Patient states understanding.
--- NOTE | 2024-10-17 16:59 | PC.NURSE ---
Patient has a dexcom. earlier today patients dexcom read 111 at 1100. and then at 1645 it read 149. nurse is aware.
[2024-10-17] MEDS: docusate sodium 100 mg Capsule PO (17:19)
[2024-10-17 20:00] VITALS: BP 117/69; PULSE 82; RESP 15; TEMP 36.4; O2SAT 100
[2024-10-17] MEDS: acetaminophen 500 mg Tablet PO (20:09)
[2024-10-17] MEDS: gabapentin 300 mg Capsule PO (20:09)
[2024-10-18] VITALS: BP 117/69; PULSE 88; RESP 14; TEMP 36.8; O2SAT 97
[2024-10-18] MEDS: enoxaparin 40 mg/0.4 mL Syringe SUBCUT (00:25)
[2024-10-18 03:17] LABS: Basophils # 0.1 10^3/uL (0.0-0.1); Basophils % 0.7 %; Eosinophils # 0.3 10^3/uL (0.0-0.8); Eosinophils % 3.5 %; Hematocrit 37.4 % (36-47); Lymphocytes # 2.3 10^3/uL (0.8-4.8); Lymphocytes % 30.5 %; Mean Corpuscular HGB Conc 32.4 g/dL (30-55); Mean Corpuscular Hemoglobin 29.3 pg (27-33); Mean Corpuscular Volume 90.6 fl (85-98); Mean Platelet Volume 9.7 fL (7.4-10.4); Monocytes # 0.6 10^3/uL (0.2-0.9); Monocytes % 8.2 %; Neutrophils # 4.34 10^3/uL (1.8-7.7); Neutrophils % 56.8 %; Nucleated Red Blood Cells % 0 %; Platelet Count 268 10^3/cmm (157-399); Red Blood Count 4.13 10^6/uL (3.85-5.65); Red Cell Distribution Width 13.1 % (12.1-15.1); White Blood Count 7.64 10^3/uL (3.29-11.43)
[2024-10-18 03:32] LABS: Blood Urea Nitrogen 11 mg/dL (8-23); Calcium 8.6 mg/dL (8.5-10.5); Carbon Dioxide 26 mmol/L (22-29); Chloride 105 mmol/L (98-107); Creatinine Clr Calc Pharmacy 69.3466; Glomerular Filtration Rate 62.1 mL/min (90-130); Glucose 110 mg/dL (65-115); Osmolality Calculated 290 mOsm/kg (285-295); Sodium 140 mmol/L (136-145)
[2024-10-18 04:00] VITALS: BP 115/65; PULSE 82; RESP 14; TEMP 36.9; O2SAT 96
[2024-10-18 08:00] VITALS: BP 131/76; PULSE 67; RESP 10; TEMP 36.8; O2SAT 98
[2024-10-18] MEDS: cetirizine 10 mg Tablet PO (08:02)
[2024-10-18] MEDS: hydroxychloroquine 200 mg Tablet PO (08:02)
[2024-10-18] MEDS: metoprolol succinate ER (24 HR) 25 mg Tablet PO (08:02)
[2024-10-18] MEDS: aspirin 81 mg EC Tablet PO (08:02)
[2024-10-18] MEDS: clopidogrel 75 mg Tablet PO (08:02)
[2024-10-18] MEDS: docusate sodium 100 mg Capsule PO (08:02)
--- NOTE | 2024-10-18 09:46 | PC.CHAP ---
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 [] Patient/Family/Request visit [] Outpatient visit [] Follow-up visit [] Physician referral [] Code/Alert [x] Routine visit [] Staff referral [] Actively dying [] Patient sleeping [] Family support [] [] Out of room [] Palliative care [] [] Receiving care in room [] Pre-surgical visit [] Trauma [] Long length of stay [] ICU visit [] Other: Relational/Emotional Strength [x] Patient feels connected with others/family/visitors/staff [] Distress [] Loneliness/isolation [] Abandonment Spirituality of Patient [x] Person of Bev [] Attends Anglican of their Bev [x] Believes in Prayer [] Reads Bible or Samaritan materials [] There are Spiritual issues to be addressed [employer] 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 Interventions [x] Prayer [x] Active listening [] Non-anxious presence [x] Spiritual/emotional support [] Crisis/trauma care [] Spiritual counseling [] Bereavement support [] Provided bereavement packet [] Provided Bible/devotional materials [] Provided toy/stuffed animal, coloring book to patient or family member [] Provided Communion [] Anointing/[place] [] Salvation [xx] Completed spiritual assessment [] Other: Impact on Illness or Injury [] Angry [] Fearful [] Anxious [] Often cries [] Exhaustion [] Unable to work [] Unable to attend nondenominational [] Unable to walk/stand [] Unable to read [] Unable to drive [] Unable to eat/drink [] Unable to sleep [] Unable to be with family [] Patient intubated [] Other: Summary Time spent with patient 5 min
[2024-10-18 10:49] VITALS: BP 126/77
--- NOTE | 2024-10-18 12:57 | P.DS_ITS ---
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 home use Diabetes mellitus complication status: with neurologic complications Diabetes mellitus complication detail: with polyneuropathy Qualified Code(s): E11.42 - Type 2 diabetes mellitus with diabetic polyneuropathy (4) Seronegative rheumatoid arthritis of both hands: Status: Chronic (5) Moderate major depression: Status: Chronic (6) Seasonal allergies: Status: Chronic (7) Chronic kidney disease, stage 2 (mild): Status: Chronic (8) Body mass index (BMI) of greater than 35 to 39.9 with comorbidity: Status: Acute Reason for Visit Reason for Visit: chest pain Hospital Course Hospital Course This is a 69-year-old female with a past medical history of CKD, PVC, GERD, seronegative rheumatoid arthritis, asthma, diabetes, hypertension who presents [facility] for chest pain Patient presents to [facility] for chest pain, cardiology consulted, underwent coronary angiography found to have critical distal RCA stenosis status post PCI with 1 stent, LAD is totally occluded in the distal segment, gives off 3 diagonal arteries, first diagonal artery has significant send 80% stenosis, plan on medically manage it. Patient was monitored as inpatient after stent placement, no recurrent chest pain, discussed compliance with aspirin and Plavix, morbidity and mortality associated with noncompliance, she voiced understanding, all questions answered. Patient was advised if she were to have any recurrent chest pain to go to the emergency room or call 911. Follow-up with cardiology in 1 week. Follow-up with primary care provider in 1 week. For her type 2 diabetes, follow-up with primary care provider for consideration of medications such as Jardiance or Januvia or metformin to decrease her cardiovascular mortality. Discussed following up with her primary care provider about blood pressure checks, and close monitoring. She does report a history of cramps with statins, no history of statin induced rhabdomyolysis. Nonetheless she will be discharged on Crestor 10 mg daily, if she does develop muscle spasms, muscle pain, muscle cramps to stop the medication and follow-up with primary care provider. Discussed morbidity and mortality associated with rhabdomyolysis, and statin induced myopathy. Patient voiced understanding, all questions answered, shared decision making, agreed to proceed. Physical Exam Const: COMMON NORMALS: no acute distress and patient oriented x3 Resp: COMMON NORMALS: normal respiratory effort, No retractions, No use of accessory muscles and clear to auscultation bilaterally AUSCULTATION: clear to auscultation bilaterally Cardio: COMMON NORMALS: regular rate, regular rhythm, S1 normal heart sound present and S2 normal heart sound present RATE: regular rate RHYTHM: regular rhythm HEART SOUNDS: S1 normal heart sound present and S2 normal heart sound present GI: COMMON NORMALS: Normal to inspection, nondistended, normoactive bowel sounds present and non-tender Extremity: COMMON NORMALS: no pedal edema Neuro: COMMON NORMALS: patient oriented x3 Psych: COMMON NORMALS: mental status grossly normal Discharge Data Studies Completed and Pending Completed Studies During Hospitalization Category Date Time Status XR chest 1V portable [id number] Urgent Exams 10/16/24 10:09 Completed CV. echo complete* [id number] Routine Ultrasound 10/16/24 14:39 Completed Pending at discharge Category Date Time Status SPA COORDINATOR request for service Routine Exams 10/17/24 06:12 Taken Radiology Impressions Chest X-Ray 10/16/24 10:09 IMPRESSION: Mild cardiomegaly unchanged, otherwise negative chest. Laboratory Results WBC 7.64 10^3/uL (3.29-11.43) 10/18/24 02:35 RBC 4.13 10^6/uL (3.85-5.65) 10/18/24 02:35 Hgb 12.10 g/dL (11.27-16.99) 10/18/24 02:35 Hct 37.4 % (36-47) 10/18/24 02:35 MCV 90.6 fl (85-98) 10/18/24 02:35 MCH 29.3 pg (27-33) 10/18/24 02:35 MCHC 32.4 g/dL (30-55) 10/18/24 02:35 RDW 13.1 % (12.1-15.1) 10/18/24 02:35 Plt Count 268 10^3/cmm (157-399) 10/18/24 02:35 MPV 9.7 fL (7.4-10.4) 10/18/24 02:35 Neut % (Auto) 56.8 % 10/18/24 02:35 Lymph % (Auto) 30.5 % 10/18/24 02:35 [place] % (Auto) 8.2 % 10/18/24 02:35 Eos % (Auto) 3.5 % 10/18/24 02:35 Baso % (Auto) 0.7 % 10/18/24 02:35 Neut # (Auto) 4.34 10^3/uL (1.8-7.7) 10/18/24 02:35 Lymph # (Auto) 2.3 10^3/uL (0.8-4.8) 10/18/24 02:35 [place] # (Auto) 0.6 10^3/uL (0.2-0.9) 10/18/24 02:35 Eos # (Auto) 0.3 10^3/uL (0.0-0.8) 10/18/24 02:35 Baso # (Auto) 0.1 10^3/uL (0.0-0.1) 10/18/24 02:35 Nucleated RBC % (auto) 0 % 10/18/24 02:35 Nucleated RBCs # 0.0 /100WBC 10/18/24 02:35 Sodium 140 mmol/L (136-145) 10/18/24 02:35 Potassium 4.0 mmol/L (3.5-5.1) 10/18/24 02:35 Chloride 105 mmol/L (98-107) 10/18/24 02:35 Carbon Dioxide 26 mmol/L (22-29) 10/18/24 02:35 Anion Gap 13.0 (5-19) 10/18/24 02:35 BUN 11 mg/dL (8-23) 10/18/24 02:35 Creatinine 0.9 mg/dL (0.5-0.9) 10/18/24 02:35 GFR Calculation 62.1 mL/min (90-130) L 10/18/24 02:35 Glucose 110 mg/dL (65-115) 10/18/24 02:35 Estimat Average Glucose 143 10/17/24 03:39 Hemoglobin A1c 6.6 % (4.0-6.0) H 10/17/24 03:39 Calculated Osmolality 290 mOsm/kg (285-295) 10/18/24 02:35 Uric Acid 6.4 mg/dL (2.4-5.7) H 10/17/24 03:39 Calcium 8.6 mg/dL (8.5-10.5) 10/18/24 02:35 Phosphorus 3.6 mg/dL (2.5-4.5) 10/17/24 03:39 Magnesium 1.9 mg/dL (1.7-2.3) 10/17/24 03:39 Total Bilirubin 0.5 mg/dL (0.15-1.2) 10/16/24 10:31 AST 18 U/L (0-32) 10/16/24 10:31 ALT 18 U/L (0-33) 10/16/24 10:31 Alkaline Phosphatase 97 U/L (35-105) 10/16/24 10:31 Creatine Kinase 79 U/L (26-192) 10/17/24 03:39 Troponin T Baseline 45 ng/L (0-10) H 10/16/24 10:31 Troponin T 120 Minute 44.80 ng/L (0-10) H 10/16/24 12:26 Delta Troponin T -0.20 ABS# (0-10) L 10/16/24 12:26 Troponin T Hi Sens 6Hr 47.32 ng/L (0-10) H 10/16/24 16:14 Troponin T Hi Sens 6Hr Delta 2.32 ng/L (0-12) 10/16/24 16:14 Total Protein 6.3 g/dL (6.6-8.7) L 10/16/24 10:31 Albumin 4.1 g/dL (3.5-5.2) 10/16/24 10:31 Globulin 2.2 g/dL (1.3-4.6) 10/16/24 10:31 Triglycerides 102 mg/dL (0-150) 10/17/24 03:39 Cholesterol 149 mg/dL (0-200) 10/17/24 03:39 LDL Cholesterol, Calc 74 mg/dL (50-129) 10/17/24 03:39 HDL Cholesterol 55 mg/dL (60-100) L 10/17/24 03:39 LDL/HDL Ratio 1.35 RATIO (0.00-3.22) 10/17/24 03:39 Cholesterol/HDL Ratio 2.71 mg/dL (0.0-4.40) 10/17/24 03:39 Vitals Last Vital Signs Temp 98.2 F 10/18/24 08:00 Pulse 67 10/18/24 08:00 Resp 10 L 10/18/24 08:00 BP 126/77 10/18/24 10:49 Pulse Ox 98 10/18/24 08:00 O2 Del Method Room Air 10/18/24 08:00 Discharge Plan Discharge Patient Disposition: Home Condition: Stable Prescriptions: New clopidogrel 75 mg Tablet 75 mg PO DAILY Qty: 90 3RF rosuvastatin 10 mg tablet 10 mg PO DAILY Qty: 30 0RF Continued hydroxyzine HCl 25 mg tablet 25 mg PO BID PRN (Reason: amxiety) Qty: 180 1RF nitroglycerin 0.3 mg tablet, sublingual 0.3 mg sublingual Q5M PRN (Reason: chest pain) Qty: 10 0RF Rx Instructions: do not exceed 3 doses per episode hydroxychloroquine 200 mg tablet 200 mg PO BID Qty: 180 1RF acetaminophen [Tylenol Extra Strength] 500 mg tablet 500 mg PO BID PRN (Reason: OA) levocetirizine 5 mg tablet 5 mg PO DAILY PRN (Reason: ALLERGIES) amlodipine [Norvasc] 5 mg tablet 5 mg PO .qhs Qty: 90 1RF Rx Instructions: Take one tablet daily at bedtime gabapentin 300 mg capsule 300 mg PO .qhs Qty: 90 1RF metoprolol succinate 25 mg tablet extended release 24 hr 25 mg PO DAILY multivitamin Tablet 1 tab PO DAILY aspirin 81 mg Tablet,Delayed Release (Dr/Ec) 81 mg PO DAILY cholecalciferol (vitamin D3) [Vitamin D3] 10 mcg (400 unit) tablet 10 mcg PO DAILY Ozempic 2 mg/dose (8 mg/3 mL) pen injector 2 mg SUBCUT Q7D Patient Comments: recieve through patient assistance program prednisone 20 mg tablet 40 mg PO DAILY PRN (Reason: RA flare, 5 days at a time) (DME) FreeStyle Kartik 3 Sensor Device MISCELLANEOUS Discharge Orders: Discharge Order (Routine); Ordered 10/18/24 Ordered By: Bev Osborne Referrals: Leslie Ash FNP [Nurse Practitioner] - 11/12/24 8:30 am ( ) Christiano Gutierrez MD [Primary Care Provider] - 11/22/24 2:30 pm Discharge Diet: Cardiac Discharge Activity: Resume usual activity Patient Instructions: Coronary Angioplasty (DC), Opioid Safety, Post Angiogram Home Care Instructions Discharge Attestations Time Spent in Discharge Care*: greater than 30 min Quality Metrics Clinical Quality Measures [ Acute Myocardial Infaction { Clinical Trial Participant: No; Contraindication to aspirin: None; Aspirin prescribed; Contraindication to statin: None; Statin prescribed; Contraindication to PCI: None; PCI performed;}] Coding Level of Care Code 40756 Total time (in minutes) for Discharge: 45 Diagnoses Unstable angina I20.0 Primary hypertension I10 Hypertension type: primary hypertension Type 2 diabetes mellitus with diabetic polyneuropathy, without long-term current use of insulin E11.42 Diabetes mellitus type: type 2 Diabetes mellitus nursing home insulin use: without nursing home use Diabetes mellitus complication status: with neurologic complications Diabetes mellitus complication detail: with polyneuropathy Seronegative rheumatoid arthritis of both hands M06.041; M06.042 Moderate major depression F32.1 Seasonal allergies J30.2 Chronic kidney disease, stage 2 (mild) N18.2 Body mass index (BMI) of greater than 35 to 39.9 with comorbidity
--- NOTE | 2024-10-18 13:06 | P.PN_ITS ---
<Statement entered by Juan Mai M.D - 10/19/24 12:45> Patient was cared for in conjunction with an advanced practice practitioner.? I reviewed the chart and all pertinent data including imaging, telemetry, and laboratory results.? I discussed the patient in detail with the advanced practice practitioner.? Please see? their note for progress note, testing results and agreed upon plan of care for the patient. Subjective 2 Subjective: Patient doing well today. No chest pain or shortness of breath. Radial site looks good. She is ready to go home. Vitals/I&O/Wt Last Vital Signs Temp 98.2 F 10/18/24 08:00 Pulse 67 10/18/24 08:00 Resp 10 L 10/18/24 08:00 BP 126/77 10/18/24 10:49 Pulse Ox 98 10/18/24 08:00 O2 Del Method Room Air 10/18/24 08:00 10/17/24 10/18/24 10/18/24 22:59 06:59 14:59 Intake Total 1570 / 1810 1100 / 2910 480 / 480 Balance 1570 / 1810 1100 / 2910 480 / 480 Weight last 48 hrs Weight 214 lb 15.211 oz Weight 214 lb 4.629 oz Weight 217 lb 2.485 oz Physical Exam 2 Narrative: General: No apparent distress, healthy appearing, well nourished HENMT: normoceophalic Neck: No carotid bruit bilaterally Muskuloskeletal: Full ROM Lymphatic: no lymphedema noted Respiratory: Normal respiratory effort, clear to auscultation bilaterally throughout all lung [place], no use of accessory muscles Cardio: No JVD, regular rate, regular rhythm, S1 S2 normal, no murmurs, peripheral pulses 2+ radial palpated bilaterally GI: Normal to inspection, nondistended Extremities: Full ROM, normal, normal capillary refill, no cyanosis or edema Neuro: Alert and oriented x4, no focal motor deficits Psych: Affect normal, denies suicidal ideation, mental status grossly normal Skin: right radial cath site clean, dry, intact w/o s/s of hematoma Data 10/18/24 02:35 10/18/24 02:35 A&P Assessment and plan (1) Hypertension: Qualifiers: Hypertension type: primary hypertension Qualified Code(s): I10 - Essential (primary) hypertension (2) PVC (premature ventricular contraction): (3) Dyspnea on exertion: (4) Chest pain: Qualifiers: Chest pain type: chest pain on breathing Qualified Code(s): R07.1 - Chest pain on breathing (5) Bigeminal rhythm: Plan Patient s/p PCI to the RCA. Recommend continue aspirin and Plavix for 1 year at least. Activity restrictions were given to patient. She may go home from our perspective. I discussed with patient statin therapy. She would like to try a different statin. In the past, she stated atorvastatin gave her some mild muslce pains after taking it for a long time, but would like to try something new. We placed her on low dose rosuvastatin and she will notify us of any abnormal symptoms and start OTC coq10. PDMP PDMP Reviewed: Not Reviewed Attestations 2 Medical Necessity Statement*: May be discharged from cardiology perspective. F/U in 1 week. Coding Level of Care Code Acute Code for Chg Fwd Diagnoses Primary hypertension I10 Hypertension type: primary hypertension PVC (premature ventricular contraction) I49.3 Dyspnea on exertion R06.00 Chest pain on breathing R07.1 Chest pain type: chest pain on breathing Bigeminal rhythm I49.8
== END 2024-10-18 11:12 | disposition home or self-care (01) | DRG 322 ==
LOC: ER 10:43 → CSU 12:06
PROVIDERS: Internal Medicine; Nurse Practitioner Family; Physician Assistant; Admitting Provider Hospitalist; Emergency Provider Family Medicine; PCP Family Medicine; Visit Provider Family Medicine
PROC: 027034Z Dilation of Coronary Artery, One Artery with Drug-eluting Intraluminal Device, Percutaneous Approach (ICD-10-PCS; principal; 2024-10-17 08:30)
PROC: 027034Z Dilation of Coronary Artery, One Artery with Drug-eluting Intraluminal Device, Percutaneous Approach (ICD-10-PCS; 2024-10-17 08:30)
DX: I25.110 Atherosclerotic heart disease of native coronary artery with unstable angina pectoris (principal); I25.82 Chronic total occlusion of coronary artery; E11.22 Type 2 diabetes mellitus with diabetic chronic kidney disease; I12.9 Hypertensive chronic kidney disease with stage 1 through stage 4 chronic kidney disease, or unspecified chronic kidney disease; E11.51 Type 2 diabetes mellitus with diabetic peripheral angiopathy without gangrene; N18.2 Chronic kidney disease, stage 2 (mild); E11.42 Type 2 diabetes mellitus with diabetic polyneuropathy; Z79.85 Long-term (current) use of injectable non-insulin antidiabetic drugs; M06.042 Rheumatoid arthritis without rheumatoid factor, left hand; M06.041 Rheumatoid arthritis without rheumatoid factor, right hand; F32.9 Major depressive disorder, single episode, unspecified; J30.2 Other seasonal allergic rhinitis; Z79.82 Long term (current) use of aspirin
CPT/HCPCS: 36415; 71045; 80048; 80053; 80061; 82550; 83036; 83735; 84100; 84484; 84550; 85025; 85347; 93005; 93306; 93454; 96372; 96374; 96376; 99152; 99153; 99285; C1725; C1769; C1874; C1887; C1894; C9600; J1644; J1650; J2250; J3010; J3490; J7030; J9999; Q0163; Q9967

== ENCOUNTER → 2024-11-12 08:20 | Outpatient (BNVA) | payer MEDICARE, SELFPAY | PROVIDERS: PCP Family Medicine; Visit Provider Nurse Practitioner Family | DX: I25.10 Atherosclerotic heart disease of native coronary artery without angina pectoris (principal); I12.9 Hypertensive chronic kidney disease with stage 1 through stage 4 chronic kidney disease, or unspecified chronic kidney disease; N18.2 Chronic kidney disease, stage 2 (mild); Z79.01 Long term (current) use of anticoagulants; Z79.82 Long term (current) use of aspirin; I25.2 Old myocardial infarction | CPT/HCPCS: 99214 ==

== ENCOUNTER → 2024-11-13 09:51 | Outpatient (BNVA) | payer MEDICARE, SELFPAY | PROVIDERS: PCP Family Medicine; Visit Provider Internal Medicine Rheumatology | DX: M06.041 Rheumatoid arthritis without rheumatoid factor, right hand (principal); M06.042 Rheumatoid arthritis without rheumatoid factor, left hand; Z79.899 Other long term (current) drug therapy; B37.81 Candidal esophagitis; B37.0 Candidal stomatitis; E11.42 Type 2 diabetes mellitus with diabetic polyneuropathy; Z71.89 Other specified counseling; K12.1 Other forms of stomatitis | CPT/HCPCS: 99214 ==

== ENCOUNTER 2024-12-04 10:12 | Oncology outpatient (recurring) (ONCR) | payer MEDICARE, SELFPAY ==
--- NOTE | 2024-12-04 13:33 | N.ONRAD NP_ITS ---
Radiation Oncology New Patient Visit Patient: Leydi Piper MR#: [id number] : 1955> Age: 69> Sex: Female> Dictated by: Dr. Shukri Higuera Date of Service: 12/04/2024 Referring Physician(s) : Elio Frye Diagnosis: Long standing rheumatoid arthritis. Radiotherapy to date: Summary: none. Chief Complaint / History of Present Illness: Current Medications: Claritin, janumet, losartan Potassium-HCTZ, lyrica, methocarbamol, nasonex, omeprazole, traMADol HCl. Allergies: STATINS. Medical History: Cervical radiculopathy and myelopathy, diabetes type II, Fibromyalgia, gastroesophageal reflux disease, hypertension, Lumbar radiculopathy, migraine, Non alcoholic steatohepatitis. No history of collagen vascular disease. No previous radiation therapy. CAD s/p NE followed by stent placement 10/2024. Surgical History: AICD placement in 1985, appendectomy, hysterectomy in 1984, left knee orthoscope in 2008, left shoulder repair in 2007 and orif left lower extremity in 1999. Stent placement . Family History: Father is having experienced heart disease. Mother is alive having experienced diabetes, hypertension, and kidney disease. i sister from kidney disease i sister with bone cancer Social History: Never smoked. Active drinker. . 3 daughters. Living independently. 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 Current Complaints / Review of Systems: Chronic proximal finger joint pain for many years refractory to Luana and other meds. She also notes bilateral intermittent trigger finger symptoms. She is not interested in further use of biologic treatments as she has now had several skin cancers that may have occurred due to her immunosuppression from these meds. Vital Signs: Performed on 12/04/2024 10:32 AM BMI - 33.11 kg/m2 (high), Height - 67 in, Weight - 211.4 lbs, Temperature - 97.5 f, Pulse - 75 /min, Respiration - 17 /min, O2 Sat - 96 %, Pain - 4, Fatigue - 0 and BP - 139/ 75 mm(hg). Physical Exam: Mild tenderness at MP joints. No joint distortion or ulnar deviation. FROM seen. Performance Status: EOG PS 0 ??? 1. Pathology: none. Lab: none Imaging: none Impression: Recalcitrant rheumatoid arthritis. Low dose radiation reasonable to improve symptoms. Discussed nature of treatment, expectations and toxicities. She will make a final decision after finding out her insurance coverage. Would recommend 3 Gy in 6 fractions of phone based treatment. Plan: Signed by: 12/04/2024 1:32:07 PM <<Signature on File>> Time spent with patient: CPT Code: CPT Code:
== END 2024-12-15 23:59 | disposition home or self-care (01) ==
PROVIDERS: PCP Family Medicine; Visit Provider Radiology Radiation Oncology
DX: M06.89 Other specified rheumatoid arthritis, multiple sites (principal); Z79.899 Other long term (current) drug therapy
CPT/HCPCS: 99205

== ENCOUNTER → 2025-01-29 08:45 | Outpatient (BNVA) | payer MEDICARE, SELFPAY | PROVIDERS: PCP Family Medicine; Visit Provider Nurse Practitioner Family | DX: K12.0 Recurrent oral aphthae (principal); D69.2 Other nonthrombocytopenic purpura; L81.4 Other melanin hyperpigmentation; L57.8 Other skin changes due to chronic exposure to nonionizing radiation; D18.01 Hemangioma of skin and subcutaneous tissue; Z08 Encounter for follow-up examination after completed treatment for malignant neoplasm; Z85.828 Personal history of other malignant neoplasm of skin; L57.0 Actinic keratosis | CPT/HCPCS: 17000; 99214 ==

== ENCOUNTER 2025-02-05 11:34 | Outpatient (CLI) | payer MEDICARE, SELFPAY ==
[2025-02-05 13:28] LABS: Ferritin 64 ng/mL (15-150); Iron 47 ug/dL (37-145); Total Iron Binding Capacity 349 mcg/dl; Unsaturated Iron Binding 302 ug/dL (112-347)
== END 2025-02-05 11:35 | disposition home or self-care (01) ==
LOC: LAB 11:36
PROVIDERS: PCP Family Medicine; Visit Provider Nurse Practitioner Family
DX: K12.0 Recurrent oral aphthae (principal)
CPT/HCPCS: 36415; 82728; 83540; 83550

== ENCOUNTER → 2025-04-05 14:05 | Outpatient (BNVA) | payer MEDICARE, SELFPAY | PROVIDERS: PCP Family Medicine; Visit Provider Family Medicine | DX: U07.1 COVID-19 (principal); R06.02 Shortness of breath | CPT/HCPCS: 71046 ==

== ENCOUNTER → 2025-05-01 10:58 | Outpatient (BNVA) | payer MEDICARE, SELFPAY | PROVIDERS: PCP Family Medicine; Visit Provider Family Medicine | DX: E11.42 Type 2 diabetes mellitus with diabetic polyneuropathy (principal) | CPT/HCPCS: 80053; 83036 ==